=== PATIENT | male | born 1970 | race Caucasian/White ===

== ENCOUNTER 2018-06-25 10:56 | Emergency (ER) | payer BC, SELFPAY ==
[2018-06-25] VITALS (20 sets, daily range): BP systolic 114–143; BP diastolic 79–88; PULSE 58–82; RESP 11–21; TEMP 36.9; O2SAT 94–100
--- NOTE | 2018-06-25 11:19 | W.ED.GENAD ---
Discharge Plan Disposition Patient Disposition: HOME Condition: Stable Discharge Details Chief Complaint: Chest Pain Clinical Impression: Chest pain Primary Care Provider: None,None ED Provider: Kiran Cain Discharge Instructions Instructions: Chest Pain (ED) Additional Instructions: 1. Drink plenty of fluids. 2. Continue all medications as prescribed. 3. Acetaminophen 1000mg every 4 hours (up to 5 time a day) and/or ibuprofen 600mg every 6 hours as needed for fever or pain. Return to the Emergency Department (ED) if your condition worsens, does not improve as expected, or for ANY other concerns. Specifically, return if you have new or uncontrolled pain, worsening fever, difficulty breathing, vomiting, or are unable to drink fluids. Referrals: Jan Ya [Emergency Nurse] - Discharge Data Discharge Date/Time-TO BE ENTERED AT DEPARTURE: 06/25/18 12:55 Medical Decision Making 48-year-old presents with atypical chest pain which woke him from sleep. Chest pain has remained localized to his left parasternal anterior chest wall and is worsened by inspiration. Of note, during his ED evaluation, he noted change in pain with rolling towards his left side for a bedside ultrasound. EKG nondiagnostic. Troponin negative. Bedside echo negative for pericardial effusion, evidence of LV dysfunction, or RV strain. Aortic root visualized and appears normal in size. Discussed unclear etiology of chest pain with low likelihood of ACS/dissection/PE. Discharged home the plan for regular analgesia. He will follow-up as an outpatient with his PCP or return here for worsening or persistent symptoms. Given usual and customary return instructions at discharge. Differential Diagnosis Diagnoses considered unlikely includes ACS, aortic dissection, PE Medical Records Medical records reviewed: Yes I reviewed the patient's medical records. Imaging Data Radiologic Study: Attestation: I personally reviewed and interpreted this imaging study as follows: My impression: Limited cardiac bedside Ultrasound. Findings include no pericardial effusion, decreased LVEF, or RV strain. Images obtained, reviewed, and interpreted independently by myself. Images saved on ultrasound system for review. ECG Data Attestation: I personally reviewed and interpreted this ECG (s) as follows: Prior ECG tracings: not available for review Interpretation: Normal sinus rhythm 70bpm. Incomplete RBBB. No acute ST changes. Interpreted independently and contemporaneously by myself. HPI General Mode of arrival: ambulatory. Date/Time Provider Initiated Documentation: 06/25/18 11:19. Limitations to Documentation: no limitations. Information obtained by: patient. HPI Narrative: 48-year-old gentleman with an unremarkable past medical history. He has no known history of ACS or VT E. Presents with persistent atypical chest pain localized to his left parasternal anterior chest. He recounts being in his usual state of health until early this morning when he was awakened by atypical left-sided chest pain rated at a 6/10. He assumed this was reflux.. He continued his normal daily activities including having breakfast and noted no significant change in the symptoms with food ingestion. Later, he was evaluated by home energy auditor and had a nondiagnostic EKG. However, he later noted worsening pain when walking around the local grocery store prompting him to present here for further evaluation. On arrival, he rates his pain as 3/10 and localizes his symptoms to his left anterior parasternal chest at approximately the 6/7. His pain is worse with deep inspiration. He denies association with positional change or direct palpation. He denies significant dyspnea, palpitations, diaphoresis, presyncope, abdominal pain, or any lower extremity pain or General Stated Complaint: Chest Pain SUZE: 2 Review of Systems Review of Systems All systems reviewed & are unremarkable except as noted in HPI and below Constitutional Denies chills, Denies fatigue, Denies fever(s) and Denies weakness ENT Denies throat swelling Cardiovascular Reports chest pain, Denies diaphoresis, Denies rapid heart rate, Denies pedal edema, Denies irregular heart rhythm and Denies dyspnea Respiratory Denies chest congestion and Denies dyspnea Gastrointestinal Denies abdominal pain, Denies melena and Denies bloating Musculoskeletal Denies back pain and Denies muscle weakness Neurologic Denies behavioral changes, Denies confusion and Denies weakness Psychiatric Denies behavioral changes and Denies confusion Endocrine Denies fatigue, Denies flushing and Denies heat intolerance Hematologic/Lymphatic Denies as per HPI and Denies easy bleeding Allergic/Immunologic Denies urticaria and Denies throat swelling [facility] Social History Smoking/Tobacco Use Status: Never Exam Narrative Exam Narrative: Nursing note and vital signs have been reviewed and noted. GENERAL: alert, active, no acute distress, well -hydrated, well-nourished HEENT: atraumatic/normocephalic, PERRLA, EOMI, conjunctiva clear, external ears/canals normal, nasal mucosa normal NECK: supple, full range of motion, no mass, normal lymphadenopathy, no thyromegaly CARDIOVASCULAR: RRR, no murmurs, nl pulses, no edema PULMONARY: nl effort, no audible wheezing or stridor, nl breath sounds with no focal deficit. no chest wall tenderness ABDOMEN: soft, non-tender, non-distended, no mass, no organomegaly EXTREMITY: normal muscle tone, all joints with FROM, no deformity or tenderness NUERO: gross motor exam normal, normal stance and gait, PSYCH: alert and oriented, Course Vital Signs Temperature 98.4 F 06/25/18 11:01 Pulse 70 06/25/18 11:01 Respiratory Rate 12 06/25/18 11:01 Blood Pressure 143/83 H 06/25/18 11:01 Pulse Oximetry 99 06/25/18 11:01 Temperature 98.4 F 06/25/18 11:01 Temperature Source Skin 06/25/18 11:01 Pulse 82 06/25/18 11:13 Respiratory Rate 16 06/25/18 11:13 Respiratory Effort 06/25/18 11:13 Respiratory Depth Normal 06/25/18 11:13 Respiratory Pattern Normal 06/25/18 11:13 Blood Pressure 143/83 H 06/25/18 11:13 Blood Pressure Position Supine 06/25/18 11:01 Pulse Oximetry 98 06/25/18 11:13 Oxygen Delivery Method Room Air 06/25/18 11:13 Oxygen Flow Rate 0 06/25/18 11:13 Pain Level 3 06/25/18 11:13
--- NOTE | 2018-06-25 11:22 | ED.GENADUL_ITS ---
Discharge Plan Disposition Patient Disposition: HOME Condition: Stable Discharge Details Chief Complaint: Chest Pain Clinical Impression: Chest pain Primary Care Provider: None,None ED Provider: Kiran Cain Discharge Instructions Instructions: Chest Pain (ED) Additional Instructions: 1. Drink plenty of fluids. 2. Continue all medications as prescribed. 3. Acetaminophen 1000mg every 4 hours (up to 5 time a day) and/or ibuprofen 600mg every 6 hours as needed for fever or pain. Return to the Emergency Department (ED) if your condition worsens, does not improve as expected, or for ANY other concerns. Specifically, return if you have new or uncontrolled pain, worsening fever, difficulty breathing, vomiting, or are unable to drink fluids. Referrals: Jan Ya [Emergency Nurse] - Discharge Data Discharge Date/Time-TO BE ENTERED AT DEPARTURE: 06/25/18 12:55 Medical Decision Making 48-year-old presents with atypical chest pain which woke him from sleep. Chest pain has remained localized to his left parasternal anterior chest wall and is worsened by inspiration. Of note, during his ED evaluation, he noted change in pain with rolling towards his left side for a bedside ultrasound. EKG nondiagnostic. Troponin negative. Bedside echo negative for pericardial effusion, evidence of LV dysfunction, or RV strain. Aortic root visualized and appears normal in size. Discussed unclear etiology of chest pain with low likelihood of ACS/dissection/PE. Discharged home the plan for regular analgesia. He will follow-up as an outpatient with his PCP or return here for worsening or persistent symptoms. Given usual and customary return instructions at discharge. Differential Diagnosis Diagnoses considered unlikely includes ACS, aortic dissection, PE Medical Records Medical records reviewed: Yes I reviewed the patient's medical records. Imaging Data Radiologic Study: Attestation: I personally reviewed and interpreted this imaging study as follows: My impression: Limited cardiac bedside Ultrasound. Findings include no pericardial effusion, decreased LVEF, or RV strain. Images obtained, reviewed, and interpreted independently by myself. Images saved on ultrasound system for review. ECG Data Attestation: I personally reviewed and interpreted this ECG (s) as follows: Prior ECG tracings: not available for review Interpretation: Normal sinus rhythm 70bpm. Incomplete RBBB. No acute ST change s. Interpreted independently and contemporaneously by myself. HPI General Mode of arrival: ambulatory . Date/Time Provider Initiated Documentation: 02/03/19 11:19 . Limitations to Documentation: no limitations . Information obtained by: patient . HPI Narrative: 48-year-old gentleman with an unremarkable past medical history. He has no known history of ACS or VT E. Presents with persistent atypical chest pain localized to his left parasternal anterior chest. He recounts being in his usual state of health until early this morning when he was awakened by atypical left-sided chest pain rated at a 6/10. He assumed this was reflux.. He continued his normal daily activities including having breakfast and noted no significant change in the symptoms with food ingestion. Later, he was evaluated by chemical laboratory tester and had a nondiagnostic EKG. However, he later noted worsening pain when walking around the local grocery store prompting him to present here for further evaluation. On arrival, he rates his pain as 3/10 and localizes his symptoms to his left anterior parasternal chest at approximately the 6/7. His pain is worse with deep inspiration. He denies association with positional change or direct palpation. He denies significant dyspnea, palpitations, diaphoresis, presyncope, abdominal pain, or any lower extremity pain or General Stated Complaint: Chest Pain SUZE: 2 Review of Systems Review of Systems All systems reviewed & are unremarkable except as noted in HPI and below Constitutional Denies chills, Denies fatigue, Denies fever(s) and Denies weakness ENT Denies throat swelling Cardiovascular Reports chest pain, Denies diaphoresis, Denies rapid heart rate, Denies pedal edema, Denies irregular heart rhythm and Denies dyspnea Respiratory Denies chest congestion and Denies dyspnea Gastrointestinal Denies abdominal pain, Denies melena and Denies bloating Musculoskeletal Denies back pain and Denies muscle weakness Neurologic Denies behavioral changes, Denies confusion and Denies weakness Psychiatric Denies behavioral changes and Denies confusion Endocrine Denies fatigue, Denies flushing and Denies heat intolerance Hematologic/Lymphatic Denies as per HPI and Denies easy bleeding Allergic/Immunologic Denies urticaria and Denies throat swelling [facility] Social History Smoking/Tobacco Use Status: Never Exam Narrative Exam Narrative: Nursing note and vital signs have been reviewed and noted. GENERAL: alert, active, no acute distress, well -hydrated, well-nourished HEENT: atraumatic/normocephalic, PERRLA, EOMI, conjunctiva clear, external ears/canals normal, nasal mucosa normal NECK: supple, full range of motion, no mass, normal lymphadenopathy, no thyromegaly CARDIOVASCULAR: RRR, no murmurs, nl pulses, no edema PULMONARY: nl effort, no audible wheezing or stridor, nl breath sounds with no focal deficit. no chest wall tenderness ABDOMEN: soft, non-tender, non-distended, no mass, no organomegaly EXTREMITY: normal muscle tone, all joints with FROM, no deformity or tenderness NUERO: gross motor exam normal, normal stance and gait, PSYCH: alert and oriented, Course Vital Signs Temperature 98.4 F 06/25/18 11:01 Pulse 70 06/25/18 11:01 Respiratory Rate 12 06/25/18 11:01 Blood Pressure 143/83 H 06/25/18 11:01 Pulse Oximetry 99 06/25/18 11:01 Temperature 98.4 F 06/25/18 11:01 Temperature Source Skin 06/25/18 11:01 Pulse 82 06/25/18 11:13 Respiratory Rate 16 06/25/18 11:13 Respiratory Effort 06/25/18 11:13 Respiratory Depth Normal 06/25/18 11:13 Respiratory Pattern Normal 06/25/18 11:13 Blood Pressure 143/83 H 06/25/18 11:13 Blood Pressure Position Supine 06/25/18 11:01 Pulse Oximetry 98 06/25/18 11:13 Oxygen Delivery Method Room Air 06/25/18 11:13 Oxygen Flow Rate 0 06/25/18 11:13 Pain Level 3 06/25/18 11:13
[2018-06-25 11:31] LABS: Abs Immature Grans 0.01 k/cumm (0.0-0.09); Absolute Basophil Count 0.02 k/cumm (0.0-0.2); Absolute Eosinophil Count 0.32 k/cumm (0.0-0.7); Absolute Lymphocyte Count 1.58 k/cumm (1.2-3.4); Absolute Monocyte Count 0.88 k/cumm (0.11-0.7); Absolute Neutrophil Count 7.93 k/cumm (1.2-6.7); Basophils % 0.2; HCT 44.4 % (40.0-50.0); HGB 15.3 g/dL (13.5-17.5); Immature Grans % 0.1; Lymphocytes % 14.7; Mean Corp. HGB Concentration 34.5 g/dL (32.0-36.0); Mean Corpuscular Hemoglobin 29.8 pg (27.0-33.0); Mean Corpuscular Volume 86.4 fL (80-95); Mean Platelet Volume 9.3 fL (8.0-11.0); Monocytes % 8.2; Neutrophils % 73.8; Platelet Count 225 x1000/uL (130-400); RBC 5.14 m/cumm (4.50-6.00); RBC Distribution Width 11.9 % (11.8-14.1); White Blood Cell Count 10.74 k/cumm (4.4-10.8)
[2018-06-25 11:46] LABS: ALT 47 U/L (12-78); AST 25 U/L (15-37); Albumin 4.1 g/dL (3.4-5.0); Alkaline Phosphatase 46 U/L (46-116); Anion Gap 4.1 mmol/L (3-11); BUN 18 mg/dL (7-18); Bilirubin, Total 0.5 mg/dL (0.2-1.0); CO2 33.9 mmol/L (21.0-32.0); CREATININE 1.07 mg/dL (0.70-1.30); Calcium 9.4 mg/dL (8.5-10.1); Chloride 102 mmol/L (98-107); Glucose 96 mg/dL (70-100); Magnesium 1.9 mg/dL (1.8-2.4); Potassium 4.3 mmol/L (3.5-5.1); Sodium 140 mmol/L (136-145); Total Protein 7.7 g/dL (6.4-8.2)
[2018-06-25 11:51] LABS: Troponin I < 0.02 ng/mL (0.00-0.06)
[2018-06-25] MEDS: Ibuprofen 600 MG TAB PO (12:44)
== END 2018-06-25 12:55 | disposition home or self-care (01) ==
PROVIDERS: Emergency Provider Emergency Medicine
DX: R07.89 Other chest pain (principal)
CPT/HCPCS: 36415; 80053; 93005; 96360; 99285; 83735; 84484; 85025; 93010

== ENCOUNTER 2021-10-29 12:05 | Outpatient (REF) | payer BC, SELFPAY ==
[2021-10-29 20:25] LABS: HGB 13.8 g/dL (13.5-17.5); MCH 30.4 pg (27.0-33.0); MCHC 33.7 % (32.0-36.0); MCV 90 fL (80-95); MPV 9.2 fL (8.0-11.0); Platelet Count 247 10^3/uL (130-400); RBC 4.54 10^6/uL (4.36-5.78); RDW 11.6 % (11.8-14.1); RDW-SD 38.8 fL
[2021-10-29 20:34] LABS: Hemoglobin A1C 5.8 % (<5.7)
[2021-10-29 20:40] LABS: ALT 29 U/L (16-63); AST 15 U/L (15-37); Albumin 4.2 g/dL (3.4-5.0); Alkaline Phosphatase 47 U/L (46-116); Anion Gap 9.1 mmol/L (3-11); BUN 15 mg/dL (7-18); Bilirubin, Total 0.4 mg/dL (0.2-1.0); CO2 27.9 mmol/L (21.0-32.0); CREATININE 0.9 mg/dL (0.70-1.30); Calculated LDL 125 mg/dL (<100); Chloride 103 mmol/L (98-107); Cholesterol 225 mg/dL (<200); Glucose 98 mg/dL (74-106); HDL Cholesterol 94 mg/dL (40-60); Potassium 4.2 mmol/L (3.5-5.1); Sodium 140 mmol/L (136-145); Total Protein 6.9 g/dL (6.4-8.2); Triglyceride 30 mg/dL (<150)
[2021-11-02 11:13] LABS: Hepatitis C Ab w Rflx HCV PCR Negative (Negative)
[2021-11-02 11:29] LABS: HIV-1/2 Ag & Ab Screen Negative (Negative)
== END 2021-10-29 12:06 | disposition home or self-care (01) ==
LOC: NCHCN 12:05
PROVIDERS: Visit Provider Nurse Practitioner Family
DX: Z00.00 Encounter for general adult medical examination without abnormal findings (principal); Z13.220 Encounter for screening for lipoid disorders; Z13.1 Encounter for screening for diabetes mellitus; Z11.4 Encounter for screening for human immunodeficiency virus [HIV]; Z11.59 Encounter for screening for other viral diseases
CPT/HCPCS: 80053; 80061; 85027; 86803; 87389; 83036

== ENCOUNTER 2023-10-11 14:34 | Outpatient (REF) | payer BC, SELFPAY ==
[2023-10-11 16:24] LABS: Anion Gap 4.6 mmol/L (3-11); BUN 14 mg/dL (7-18); CO2 30.4 mmol/L (21.0-32.0); Calcium 9.2 mg/dL (8.5-10.1); Calculated LDL 96 mg/dL (<100); Chloride 105 mmol/L (98-107); Cholesterol 193 mg/dL (<200); Estimated GFR 90.56 (mL/min/1.73m2); Glucose 92 mg/dL (74-106); HDL Cholesterol 88 mg/dL (40-60); Potassium 4.6 mmol/L (3.5-5.1); Sodium 140 mmol/L (136-145); Triglyceride 46 mg/dL (<150)
[2023-10-12 18:51] LABS: PSA, Screening 0.7 ng/mL (<=3.5)
== END 2023-10-11 14:35 | disposition home or self-care (01) ==
LOC: NCHCN 14:34
PROVIDERS: Visit Provider Nurse Practitioner Family
DX: Z13.220 Encounter for screening for lipoid disorders (principal); Z00.00 Encounter for general adult medical examination without abnormal findings; Z12.5 Encounter for screening for malignant neoplasm of prostate
CPT/HCPCS: 80048; 80061; 84153

== ENCOUNTER 2024-02-29 20:43 | Observation (INO) | payer BC, SELFPAY ==
[2024-02-29] VITALS (65 sets, daily range): BP systolic 115–159; BP diastolic 65–130; PULSE 55–65; RESP 8–24; TEMP 36.4; O2SAT 95–100
--- NOTE | 2024-02-29 20:45 | RT.EKG_ITS ---
APPROVED REPORT Exam: Resting ECG Reason for Exam: [facility] Patient Location: E HR:56 bpm ECG Measurements Heart Rate 56 AXIS NH 191 P 71 QRSd 112 QRS -17 QT 421 T 14 QTc 408 Conclusion Sinus bradycardia...rate< 60
--- NOTE | 2024-02-29 20:52 | DI.CT_ITS ---
Exam(s) CT BRAIN NECK CTA EXAM: CT BRAIN NECK CTA CLINICAL HISTORY: tia. TECHNIQUE: Imaging Protocol: Axial CT angiography was performed with multi-slice acquisition and mu lti-planar and/or 3D reconstructions. CONTRAST MATERIAL: Intravenous: Omnipaque 350 Contrast volume:70 mL COMPARISON: No exams were available for comparison FINDINGS: CTA Neck W: Aortic arch anatomy: No significant stenosis at the origin the great vessels off the aortic arch. No intimal flap evident in the arch. Anterior circulation: Both common carotid arteries ascend with normal luminal diameters. At the level the carotid bulbs and proximal internal carotid arteries there is minimal plaque without hemodynamically significant stenosis evident. Posterior circulation: Both vertebral arteries originate in conventional fashion off of the subclavian arteries and there is no obvious stenosis at the origin of the vertebral arteries. Both vertebral arteries exhibit normal luminal diameters within the foramen transversarium. Both vertebral arteries contribute to the formation of the basilar artery at the skull base. CTA Brain W: Anterior circulation: Both internal carotid arteries are patent in the skull base-carotid canals as well as within the cave rnous sinuses. The supraclinoid aspects of the ICAs are patent. Both A1 segments are patent as are the anterior cer ebral arteries and there is no evidence of aneurysm at the level of the anterior communicating artery . Both middle cerebral arteries are patent with no evidence of significant stenosis nor intraluminal th rombus. There also no aneurysms of these vessels. Posterior circulation: The basilar artery ascends in the midline. Distally it gives off patent bilateral superior cerebella r arteries. Above this level the basilar artery terminates as patent bilateral posterior cerebral arteries. There is no evidence of aneurysm at the tip of the basilar artery nor elsewhere in the [id number] is. CT BRAIN: No skull fractures. However, there is mucosal disease in the maxillary and sphenoid sinuses. No flu id levels. There is no evidence of intracranial hemorrhage, mass effect, or shift of midline structures. There are no extra-axial fluid collections. Ventricles are not enlarged or shifted. There are no ring enh ancing lesions in the brain and no abnormal meningeal enhancement. IMPRESSION: 1. Patent carotid arteries in the neck. No hemodynamically significant stenosis. 2. Patent vertebral arteries. 3. Patent intracranial arteries. 4. No acute intracranial findings. No ring enhancing lesions in the brain. No abnormal meningeal en hancement. RADIATION DOSE DELIVERED: 2,160.16mGy.cm Total DLP DATA REPOSITORY: All CT scans at this facility are submitted to the National Radiology Data Registry (NRDR) Dose Index Registry (DIR) with the [employer] (ACR). RADIATION OPTIMIZATION: All CT scans at this facility use at least one of these dose optimization te chniques: automated exposure control; mA and/or kV adjustment per patient size (includes targeted exa ms where dose is matched to clinical indication); or iterative reconstruction.
[2024-02-29 20:58] LABS: Abs Immature Grans 0.01 10^3/uL (0.0-0.06); Absolute Basophil Count 0.05 10^3/uL (0.0-0.2); Absolute Eosinophil Count 0.34 10^3/uL (0.0-0.7); Absolute Monocyte Count 0.58 10^3/uL (0.1-0.8); Absolute Neutrophil Count 3.12 10^3/uL (1.2-6.7); Basophils % 0.8 %; Eosinophils % 5.2 %; HCT 40.4 % (40.0-50.0); HGB 13.5 g/dL (13.5-17.5); Immature Grans % 0.2 %; Lymphocytes % 37.9 %; MCH 29.9 pg (27.0-33.0); MCHC 33.4 % (32.0-36.0); MCV 90 fL (80-95); Monocytes % 8.8 %; Neutrophils % 47.1 %; Platelet Count 237 10^3/uL (130-400); RBC 4.51 10^6/uL (4.36-5.78); RDW 11.3 % (11.8-14.1); RDW-SD 37.2 fL
--- NOTE | 2024-02-29 21:01 | ED.GENADUL_ITS ---
Discharge Plan Disposition Patient Disposition: Admit to [facility] Condition: Stable Discharge Details Chief Complaint: CVA/TIA Clinical Impression: Disturbance in speech, Brain TIA ED Provider: Kole Humphrey Home Meds and New Rx's Prescriptions: No Action No Known Home Meds HPI General Mode of arrival: EMS . Date/Time Provider Initiated Documentation: 02/29/24 20:51 . Limitations to Documentation: no limitations . Information obtained by: patient . History of Present Illness 54 year old M presents to the emergency department with the chief complaint of speech abnormalities, described as moderate, Patient started experiencing this minute(s) (30) and it has been now resolved. No relieving factors improve symptom(s), No exacerbating factors reported . Patient notes denies chest pain and shortness of breath. Patient did receive the following treatments prior to arrival, none Related Data Home Medications ?Medication ?Instructions ?Recorded ?Confirmed Unknown [No Known Home Meds] 01/25/23 02/29/24 Allergies Allergy/AdvReac Type Severity Reaction Status Date / Time kiwi Allergy Unknown Swelling/Ed Verified 02/29/24 20:52 cabrera General Stated Complaint: CVA/TIA SUZE: 3 Review of Systems All systems reviewed & are unremarkable except as noted in HPI and below Constitutional Constitutional: Denies chills, Denies fever(s) and Denies weakness Eyes Eyes: Denies loss of vision Cardiovascular Cardiovascular: Denies chest pain and Denies dyspnea Respiratory Respiratory: Denies cough and Denies dyspnea Gastrointestinal Gastrointestinal: Denies abdominal pain, Denies nausea and Denies vomiting Musculoskeletal Musculoskeletal: Denies joint swelling Neurologic Neurologic: Reports abnormal speech, Denies loss of vision and Denies weakness Exam Const General: no acute distress Orientation: alert [facility] Head: normal to inspection Ears: external ears normal General nose exam: external nose normal Mouth: moist mucous membranes Eyes General: appearance normal, both eyes and all related structures Neck Neck: normal visual inspection Resp Effort & Inspection: normal respiratory effort and able to speak in complete sentences Auscultation: clear to auscultation bilaterally Cardio Rate: regular rate Heart Sounds: no murmurs Skin General skin exam: no rashes or lesions noted Neuro General: patient alert and patient oriented x3 Extrem General: normal to inspection Psych Mental Status: mental status grossly normal Course Vital Signs Vital signs: Vital Signs Temperature 36.4 C 02/29/24 20:44 Pulse 65 02/29/24 20:44 Respiratory Rate 18 02/29/24 20:44 Blood Pressure 159/127 H 02/29/24 20:44 Pulse Oximetry 97 02/29/24 20:44 Temperature 36.4 C 02/29/24 20:44 Temperature Source Skin 02/29/24 20:44 Pulse 65 02/29/24 20:44 Respiratory Rate 18 02/29/24 20:49 Respiratory Effort Normal 02/29/24 20:49 Respiratory Depth Normal 02/29/24 20:49 Respiratory Pattern Normal 02/29/24 20:49 Blood Pressure 159/127 H 02/29/24 20:44 Blood Pressure Position Sitting 02/29/24 20:44 Pulse Oximetry 97 02/29/24 20:44 Oxygen Delivery Method Room Air 02/29/24 20:44 Oxygen Flow Rate 0 02/29/24 20:44 Pain Level 0 02/29/24 20:44 Lab/Test Results Lab/Test Results: Laboratory Tests Range/Units 02/29/24 20:51 WBC (4.4-10.8) 10^3/uL 6.60 RBC (4.36-5.78) 10^6/uL 4.51 Hgb (13.5-17.5) g/dL 13.5 Hct (40.0-50.0) % 40.4 MCV (80-95) fL 90 MCH (27.0-33.0) pg 29.9 MCHC (32.0-36.0) % 33.4 RDW (11.8-14.1) % 11.3 L Plt Count (130-400) 10^3/uL 237 MPV (8.0-11.0) fL 9.0 Immature Gran % % 0.2 Neutrophils % % 47.1 Lymphocytes % % 37.9 Monocytes % % 8.8 Eosinophils % % 5.2 Basophils % % 0.8 Nucleated RBC % (0.0-0.3) % 0.0 Absolute Neutrophils (1.2-6.7) 10^3/uL 3.12 Absolute Lymphocytes (1.2-3.4) 10^3/uL 2.50 Absolute Monocytes (0.1-0.8) 10^3/uL 0.58 Absolute Eosinophils (0.0-0.7) 10^3/uL 0.34 Absolute Basophils (0.0-0.2) 10^3/uL 0.05 Medical Decision Making 54-year-old male who denies any significant past medical history comes in with an episode of feeling like he was in a pass out and had changes in speech. He says there was around 830 doing a crossword puzzle when he was unable to say the words on the page and noted he had garbled speech. He did not have loss consciousness denies any chest pain or difficulty breathing. By the time EMS got there he had return to baseline. He denies any fevers or chills recently, no abdominal pain. He is alert and oriented x 4 on arrival speaking clearly. He has no focal neurological deficits, cranial nerves II through XII are intact, NIH on my exam is 0. His symptoms are concerning for TIA, will proceed with EKG and troponins, CBC, CMP, CTA of the neck and brain and teleneurology consult. CTA negative, labs thus far unremarkable, patient remained stable, pending t eleneurology consult. Patient stable, evaluated by teleneurology who is not sure if this is a TIA versus seizure versus arrhythmia, did recommend treating it as a TIA and recommend also adding Plavix. They recommend admission for telemetry monitoring and MRI and echo. They did also recommend having EEG done but this can be done as an outpatient. Will discuss with hospitalist about admission Differential Diagnosis Differential Diagnosis: TIA, electrolyte abnormality, intracranial hemorrhage Lab Data Lab results reviewed: Yes I reviewed the patient's lab results. ECG Data Attestation: I personally reviewed and interpreted this ECG (s) as follows: Prior ECG tracings: not available for review Interpretation: sinus brtadycardia rate of 56 pr 191 no stemi Quality:SDOH Health Related Social Needs: No Data to Display PFSH All Active Problems (Updated 02/29/24 @ 22:31 by Kole Humphrey MD) Brain TIA (Acute) Disturbance in speech (Acute) Social History Smoking/Tobacco Use Status: Never Smoking risk assessment performed?: Yes Alcohol Intake: current Alcohol Intake frequency: a few times a week Drug use: Never Substance use type: marijuana Do you feel safe in your relationship?: Yes
[2024-02-29] MEDS: Normal Saline - Diluent 50 ML VIAL IJ (21:08)
[2024-02-29] MEDS: Omnipaque 350 MG/ML 100 ML BTL IJ (21:09)
[2024-02-29 21:12] LABS: INR 1.1 (0.9-1.1); PTT Activated 24.6 sec (23.6-32.8)
[2024-02-29 21:14] LABS: ALT 27 U/L (16-63); AST 24 U/L (15-37); Albumin 3.8 g/dL (3.4-5.0); Alkaline Phosphatase 49 U/L (46-116); Anion Gap 8.2 mmol/L (3-11); BUN 22 mg/dL (7-18); Bilirubin, Total 0.28 mg/dL (0.2-1.0); CO2 30.8 mmol/L (21.0-32.0); CREATININE 1.4 mg/dL (0.70-1.30); Chloride 105 mmol/L (98-107); ETHANOL BLOOD 3.3 mg/dL (<10); Glucose 103 mg/dL (74-106); Potassium 3.8 mmol/L (3.5-5.1); Sodium 144 mmol/L (136-145); Total Protein 6.9 g/dL (6.4-8.2)
--- NOTE | 2024-02-29 21:38 | DI.VRAD_ITS ---
PROCEDURE INFORMATION: Exam: CTA Head Without And With Contrast, Arteriography Exam date and time: 02/29/2024 9:10 PM Age: 54 years old Clinical indication: Stroke-like symptoms; Speech disturbance; Additional info: TIA TECHNIQUE: Imaging protocol: Computed tomographic angiography of the head without and with contrast. Exam focused on the arteries. 3D rendering (Not supervised by radiologist): MIP and/or 3D reconstructed images were created by the technologist. Contrast material: OMNI 350; Contrast volume: 70 ml; Contrast route: INTRAVENOUS (IV); Other technique: STROKE PROTOCOL was implemented. COMPARISON: No relevant prior studies available. FINDINGS: ANTERIOR CIRCULATION: Right internal carotid artery: Intracranial segment is patent with no significant stenosis or occlusion. No aneurysm. Right middle cerebral artery: No occlusion or significant stenosis. No aneurysm. Right anterior cerebral artery: No occlusion or significant stenosis. No aneurysm. Left internal carotid artery: Intracranial segment is patent with no significant stenosis. No aneurysm. Left middle cerebral artery: No occlusion or significant stenosis. No aneurysm. Left anterior cerebral artery: No occlusion or significant stenosis. No aneurysm. POSTERIOR CIRCULATION: Right vertebral artery: No occlusion or significant stenosis. No aneurysm. Left vertebral artery: No occlusion or significant stenosis. No aneurysm. Basilar artery: No occlusion or significant stenosis. No aneurysm. Right posterior cerebral artery: No occlusion or significant stenosis. No aneurysm. Left posterior cerebral artery: No occlusion or significant stenosis. No aneurysm. HEAD: Brain: No intracranial hemorrhage or extra-axial fluid collection. No evidence of mass effect or midline shift. Doyle-white matter differentiation is intact. Cerebral ventricles: No ventriculomegaly. Bones: Unremarkable. No acute fracture. Paranasal sinuses: Visualized sinuses are normal. No fluid levels. Mastoid air cells: Visualized mastoids are normal. No mastoid effusion. Soft tissues: Unremarkable. IMPRESSION: 1. No intracranial arterial occlusion or significant stenosis. 2. No acute findings on non-contrast Head CT images. ASPECTS score 10. PROCEDURE INFORMATION: Exam: CTA Neck With Contrast Exam date and time: 02/29/2024 9:10 PM Age: 54 years old Clinical indication: Stroke-like symptoms; Speech disturbance; Additional info: TIA TECHNIQUE: Imaging protocol: Computed tomographic angiography of the neck with contrast. Exam focused on the cervical segments of the vasculature. 3D rendering (Not supervised by radiologist): MIP and/or 3D reconstructed images were created by the technologist. Contrast material: OMNI 350; Contrast volume: 70 ml; Contrast route: INTRAVENOUS (IV); COMPARISON: No relevant prior studies available. FINDINGS: Right common carotid artery: No significant stenosis. No dissection or occlusion. Right internal carotid artery: Extracranial segment is patent with no significant stenosis (0% stenosis by NASCET criteria). No dissection or occlusion. Right external carotid artery: No occlusion or significant stenosis. Left common carotid artery: No significant stenosis. No dissection or occlusion. Left internal carotid artery: Extracranial segment is patent with no significant stenosis (0% stenosis by NASCET criteria). No dissection or occlusion. Left external carotid artery: No occlusion or significant stenosis. Right vertebral artery: No significant stenosis. No dissection or occlusion. Left vertebral artery: No significant stenosis. No dissection or occlusion. Soft tissues: Unremarkable. Bones/joints: No acute fracture. IMPRESSION: No occlusion or significant stenosis in the arteries of the neck. REFERENCES: NASCET CRITERIA. The degree of stenosis in the cervical segment of the internal carotid artery is based on NASCET criteria. Normal is no stenosis. Mild is less than 50% stenosis. Moderate is 50-69% stenosis. Severe is 70% to 99% stenosis. Total occlusion is no detectable patent lumen. Dictated and Authenticated by: Gerardo London MD. Ordering:MARTÍN Sharif MD
[2024-02-29 21:46] LABS: Troponin I 10 ng/L (<or=76)
[2024-02-29] MEDS: Aspirin 325 MG TAB PO (21:48)
[2024-02-29 22:30] LABS: Troponin I 11 ng/L (<or=76)
[2024-02-29] MEDS: Clopidogrel 300 MG TAB PO (22:36)
--- OUTSIDE RECORDS SUMMARY | 2024-02-29 22:42 | XMS_ITS | Encounter Summary ---
Author Organization [facility] Address [address] [place] [address] Care Team Providers Care Rail Signal Worker Name Role Phone Yazmin Mendez [facility] Primary Care Provider [phone] Encounter Details Date Type Department Care Team (Late st Contact Info) Description 10/12/2023 Lab Requisition [facility] Pathology & Laboratory Medicine - [address] [address] Outr Resulting Lab, Provider Social History Tobacco Use Types Packs/Day Years Used Date Smoking Tobacco: Never Assessed Sex and Gender Information Value Date Recorded Sex Assigned at Not on file Gender Identity Male 12/27/2023 14:44 EDT Sexual Orientation Not on file documented as of this encounter Plan of Treatment Not on file documented as of this encounter Procedures Procedure Name Priority Date/Time Associated Diagnosis Comments PSA TOTAL, DIAGNOSTIC Routine 10/11/2023 11:15 EDT documented in this encounter Results * PSA TOTAL, DIAGNOSTIC (10/11/2023 11:15 EDT) PSA 0.7 <=3.5 ng/mL 10/12/2023 18:47 EDT [facility] Blood VENOUS BLOOD / Unknown 10/11/2023 11:15 EDT 10/12/2023 17:32 EDT Narrative [facility] - 10/12/2023 18:47 EDT NOTE: Serum PSA concentration should not be interpreted as absolute evidence for the presence or absence of malignant disease. Assayed on Siemens ADVIA Centaur XPT using chemiluminescent technology.??Values obtained by using different assay methods cannot be used interchangeably. Provider Outr Resulting Lab CHEMISTRY & BLOOD GAS ORDERABLES [facility] [address] [place] [address] documented in this encounter Visit Diagnoses Not on filedocumented in this encounter Care Teams Rail Signal Worker Relationship Specialty Start Date End Date Yazmin Mendez FNP [address] [place] [address] PCP - General Family Medicine - Primary Care 12/27/23 documented as of this encounter
--- OUTSIDE RECORDS SUMMARY | 2024-02-29 22:42 | XMS_ITS | Encounter Summary ---
Author Organization [facility] Address [address] [place] [address] Care Team Providers Care Transition Specialist Name Role Phone Yazmin Mendez PULLMAN CONDUCTOR Primary Care Provider Encounter Details Date Type Department Care Team ([facility] st Contact Info) Description 12/27/2023 14:45 EDT Phlebotomy Only [facility] - Outpatient Phlebotomy Drawing [address] [place] [address] Lab, [facility] Op Phlebotomy Immunity status testing; Screening-pulmonary TB Social History Tobacco Use Types Packs/Day Years Used Date Smoking Tobacco: Never Assessed Sex and Gender Information Value Date Recorded Sex Assigned at Not on file Gender Identity Male 12/27/2023 14:44 EDT Sexual Orientation Not on file documented as of this encounter Plan of Treatment Not on file documented as of this encounter Procedures Procedure Name Priority Date/Time Associated Diagnosis Comments QUANTIFERON MITOGEN (PERFORMABLE) Routine 12/27/2023 14:57 EDT Screening-pulmonar y TB QUANTIFERON TB2 (PERFORMABLE) Routine 12/27/2023 14:57 EDT Screening-pulmonar y TB QUANTIFERON TB1 (PERFORMABLE) Routine 12/27/2023 14:57 EDT Screening-pulmonar y TB QUANTIFERON NIL (PERFORMABLE) Routine 12/27/2023 14:57 EDT Screening-pulmonar y TB QUANTIFERON INTERPRETATION (PERFORMABLE) Today 12/27/2023 14:57 EDT Screening-pulmonar y TB QUANTIFERON TB GOLD PLUS Routine 12/27/2023 14:57 EDT Screening-pulmonar y TB MEASLES IGG AB Routine 12/27/2023 14:57 EDT Immunity status testing RUBELLA IGG ANTIBODY Routine 12/27/2023 14:57 EDT Immunity status testing HEPATITIS B SURFACE ANTIBODY Routine 12/27/2023 14:57 EDT Immunity status testing VARICELLA IGG ANTIBODY Routine 14:57 EDT Immunity status testing MUMPS ANTIBODY IGG Routine 12/27/2023 14 :57 EDT Immunity status testing documented in this encounter Results * QUANTIFERON INTERPRETATION (PERFORMABLE) (12/27/2023 14:57 EDT) Quantiferon Interpretation Negative Negative 12/29/2023 12:22 EDT [facility] Comment:No interferon-gamma response to M. tuberculosis antigens was detected. ??Infection with M. tuberculosis is unlikely. A single negative result does not exclude infection with M. tuberculosis. ??In patients at high risk for M. tuberculosis infection, a second test should be considered. TB1 Ag minus Nil 0.04 IU/ml 12/29/19 24 12:22 EDT [facility] TB2 Ag minus Nil 0.03 IU/mL 12/29/19 12:22 EDT [facility] Blood VENOUS BLOOD / Unknown Venipuncture / Unknown 12/27/2023 14:57 EDT 12/29/2023 12:07 EDT Anna Jones MD IMMUNOLOGY AND SEROL JOSÉ ORDERABLES [facility] [address] [place] [address] * QUANTIFERON MITOGEN (PERFORMABLE) (12/27/2023 14:57 EDT) Blood VENOUS BLOOD / Unknown Venipuncture / Unknown 12/27/2023 14:57 EDT 12/27/2023 15:06 EDT Anna Jones MD IMMUNOLOGY AND SEROL OGY ORDERABLES Performing Organization Address City/[facility] Co de Phone Number [facility] [address] [place] [address] * QUANTIFERON TB2 (PERFORMABLE) (12/27/2023 14:57 EDT) Blood VENOUS BLOOD / Unknown Venipuncture / Unknown 12/27/2023 14:57 EDT 12/27/2023 15:06 EDT Anna Jones MD IMMUNOLOGY AND SEROL OGY ORDERABLES Performing Organization Address [facility] Co de Phone Number [facility] [address] [place] [phone] * QUANTIFERON TB1 (PERFORMABLE) (12/27/2023 14:57 EDT) Blood VENOUS BLOOD / Unknown Venipuncture / Unknown 12/27/2023 14:57 EDT 12/27/2023 15:06 EDT Anna Jones MD IMMUNOLOGY AND SEROL OGY ORDERABLES Performing Organization Address [facility] Co de Phone Number [facility] [address] [place] [phone] * QUANTIFERON NIL (PERFORMABLE) (12/27/2023 14:57 EDT) Blood VENOUS BLOOD / Unknown Venipuncture / Unknown 12/27/2023 14:57 EDT 12/27/2023 15:06 EDT Anna Jones MD IMMUNOLOGY AND SEROL OGY ORDERABLES Performing Organization Address [facility] Co de Phone Number [facility] [address] [place], [place] [phone] * HEPATITIS B SURFACE ANTIBODY (12/27/2023 14:57 EDT) Hep B Surface Ab, Quantitative 78.0 See Note mIU/mL 12/27/2023 17:08 EDT [facility] Comment: Clinical Interpretation of Immune Status: Anti-HBs detected at >10 mIU/mL. Patient is considered to be immune to infection with HBV. It has not been determined what the clinical significance is for values greater than or = 12 mIU/mL, other than the individual is considered to be immune to HBV infection. Reference Range for Hep B Surface Ab, Quant: Positive: ?>= 12.00 mIU/mL Negative: ?< 5.00 mIU/mL Indeterminate: ??>= 5.00 mIU/mL and < 12.00 mIU/mL Blood VENOUS BLOOD / Unknown Venipuncture / Unknown 12/27/2023 14:57 EDT 12/27/2023 15:37 EDT Anna Jones MD CHEMISTRY & BLOOD GA S ORDERABLES Performing Organization Address City/[facility]/ZIP Co de Phone Number [facility] [address] [place] [address] * VARICELLA IGG ANTIBODY (12/27/2023 14:57 EDT) Pathologist [facility] Varicella IgG Ab Positive See Note 12/27/2023 21:48 EDT [facility] Blood VENOUS BLOOD / Unknown Venipuncture / Unknown 12/27/2023 14:57 EDT 12/27/2023 15:37 EDT Anna Jones MD IMMUNOLOGY AND SEROL OGY ORDERABLES [facility] [address] [place] [address] * RUBELLA IGG ANTIBODY (12/27/2023 14:57 EDT) Rubella IgG Ab Positive See Note 12/27/2023 16:48 EDT [facility] Comment:The presence of Rube lla IgG suggests immunity against Rubella. Blood VENOUS BLOOD / Unknown Venipuncture / Unknown 12/27/2023 14:57 EDT 12/27/2023 15:37 EDT Anna Jones MD CHEMISTRY & BLOOD GA S ORDERABLES Performing Organization Address City/[facility]/ZIP Co de Phone Number [facility] [address] [place] [phone] * MUMPS ANTIBODY IGG (12/27/2023 14:57 EDT) Mumps Antibody IgG Positive See Note 12/27/2023 21:50 EDT [facility] Comment:Presence of detectab le mumps virus IgG antibodies. Blood VENOUS BLOOD / Unknown Venipuncture / Unknown 12/27/2023 14:57 EDT 12/27/2023 15:37 EDT Anna Jones MD IMMUNOLOGY AND SEROL OGY ORDERABLES Performing Organization Address City/[facility]/ZIP Co de Phone Number [facility] [address] [place] [phone] * MEASLES IGG AB (12/27/2023 14:57 EDT) Measles IgG Ab Positive See Note 12/27/2023 21:49 EDT [facility] Comment:Presence of detectab le measles virus IgG antibodies. Blood VENOUS BLOOD / Unknown Venipuncture / Unknown 12/27/2023 14:57 EDT 12/27/2023 15:37 EDT Anna Jones MD IMMUNOLOGY AND SEROL OGY ORDERABLES Performing Organization Address City/[facility]/ZIP Co de Phone Number [facility] [address] [place] [phone] documented in this encounter Visit Diagnoses Diagnosis Immunity status testing Antibody response examination Screening-pulmonary TB Screening examination for pulmonary tuberculosis documented in this encounter Care Teams Transition Specialist Relationship Specialty Start Date End Date Yazmin Mendez FNP [address] [place] [address] PCP - General Family Medicine - Primary Care 12/27/23 documented as of this encounter
--- OUTSIDE RECORDS SUMMARY | 2024-02-29 22:42 | XMS_ITS | Encounter Summary ---
Author Organization [facility] Address [address] [place] [address] Care Team Providers Care Director Of Strategic Sourcing Name Role Phone Yazmin Mendez CALCINER OPERATOR HELPER Primary Care Provider [phone] Encounter Details Date Type Department Care Team (Late st Contact Info) Description 12/27/[address] [facility] [address] [place], [place] [id number] Laura White RN Immunity status testing (Primary Dx); Screening-pulmonary TB Social History Tobacco Use Types Packs/Day Years Used Date Smoking Tobacco: Never Assessed Sex and Gender Information Value Date Recorded Sex Assigned at Not on file Gender Identity Male 12/27/2023 14:44 EDT Sexual Orientation Not on file documented as of this encounter Plan of Treatment Not on file documented as of this encounter Results * HEPATITIS B SURFACE ANTIBODY (12/27/2023 14:57 EDT) Hep B Surface Ab, Quantitative 78.0 See Note mIU/mL 12/27/2023 17:[address] [facility] Comment: Clinical Interpretation of Immune [...] BLOOD GA S ORDERABLES Performing Organization Address [facility] Co de Phone Number [facility] [address] [place] [address] * VARICELLA IGG ANTIBODY (12/27/2023 14:57 EDT) Varicella IgG Ab Positive See Note 12/27/2023 21:[address] [facility] Blood VENOUS BLOOD / Unknown Venipuncture / Unknown 12/27/2023 14:57 EDT 12/27/2023 15:37 EDT Anna Jones MD IMMUNOLOGY AND SEROL OGY ORDERABLES Performing Organization Address [facility] Co de Phone Number [facility] [address] [place], [place] [phone] * RUBELLA IGG ANTIBODY (12/27/2023 14:57 EDT) Rubella IgG Ab Positive See Note 12/27/2023 16:[address] [facility] Comment:The presence of Rube lla IgG suggests immunity against Rubella. Blood VENOUS BLOOD / Unknown Venipuncture / Unknown 12/27/2023 14:57 EDT 12/27/2023 15:37 EDT Anna Jones MD CHEMISTRY & BLOOD GA S ORDERABLES Performing Organization Address [facility] Co de Phone Number [facility] [address] [phone] * MUMPS ANTIBODY IGG (12/27/2023 14:57 EDT) Mumps Antibody IgG Positive See Note 12/27/2023 21:[address] [facility] Comment:Presence of detectab le mumps virus IgG antibodies. Blood VENOUS BLOOD / Unknown Venipuncture / Unknown 12/27/2023 14:57 EDT 12/27/2023 15:37 EDT Anna Jones MD IMMUNOLOGY AND SEROL OGY ORDERABLES [facility] [address] [place] [address] * MEASLES IGG AB (12/27/2023 14:57 EDT) Measles IgG Ab Positive See Note 12/27/2023 21:[address] [facility] Comment:Presence of detectab le measles virus IgG antibodies. Blood VENOUS BLOOD / Unknown Venipuncture / Unknown 12/27/2023 14:57 EDT 12/27/2023 15:37 EDT Anna Jones MD IMMUNOLOGY AND SEROL OGY ORDERABLES Performing Organization Address [facility] Co de Phone Number [facility] [address] [place] [phone] documented in this encounter Visit Diagnoses Diagnosis Immunity status testing- Primary Antibody response examination Screening-pulmonary TB Screening examination for pulmonary tuberculosis documented in this encounter Care Teams Director Of Strategic Sourcing Relationship Specialty Start Date End Date aYzmin Mendez FNP [address] [place] [phone] PCP - General Family Medicine - Primary Care 12/27/23 documented as of this encounter
--- OUTSIDE RECORDS SUMMARY | 2024-02-29 22:42 | XMS_ITS | Clinical Summary ---
Author Organization [facility] Address [address] [place] [address] Care Team Providers Care Automobile Parker Name Role Phone Yazmin Mendez SENIOR MEDICAL TECHNOLOGIST Primary Care Provider [phone] Encounters Date Type Department Care Team Description 12/27/2023 14:45 EDT Phlebotomy Only [facility] - Outpatient Phlebotomy Drawing [address] [place] [address] Lab, [facility] [place] [facility] Phlebotomy Immunity status testing; Screening-pulmonary TB 12/27/2023 Orders Only [facility] [address] [place] [address] Laura White RN Immunity status testing (Primary Dx); Screening-pulmonary TB from Last 3 Months Social History Tobacco Use Types Packs/Day Years Used Date Smoking Tobacco: Never Assessed Sex and Gender Information Value Date Recorded Sex Assigned at Not on file Gender Identity Male 12/27/2023 14:44 EDT Sexual Orientation Not on file Plan of Treatment Health Maintenance Due Date Last Done Comments Hepatitis B Vaccine (1 of 3 - 19+ 3-dose series) 01/28 COVID-19 Vaccine (2022-24 season) 2023 Hepatitis C Screen Completed 10/29/2021 Procedures Procedure Name Priority Date/Time Associated Diagnosis Comments QUANTIFERON INTERPRETATION (PERFORMABLE) Today 12/27/2023 14:57 EDT Screening-pulmonar y TB QUANTIFERON MITOGEN (PERFORMABLE) Routine 12/27/2023 14:57 EDT Screening-pulmonar y TB QUANTIFERON TB2 (PERFORMABLE) Routine 12/27/2023 14:57 EDT Screening-pulmonar y TB QUANTIFERON TB1 (PERFORMABLE) Routine 12/27/2023 14:57 EDT Screening-pulmonar y TB QUANTIFERON NIL (PERFORMABLE) Routine 12/27/2023 14:57 EDT Screening-pulmonar y TB HEPATITIS B SURFACE ANTIBODY Routine 12/27/2023 14:57 EDT Immunity status testing VARICELLA IGG ANTIBODY Routine 14:57 EDT Immunity status testing QUANTIFERON TB GOLD PLUS Routine 12/27/2023 14:57 EDT Screening-pulmonar y TB RUBELLA IGG ANTIBODY Routine 12/27/2023 14:57 EDT Immunity status testing MUMPS ANTIBODY IGG Routine 12/27/2023 14 :57 EDT Immunity status testing MEASLES IGG AB Routine 12/27/2023 14:57 EDT Immunity status testing HEPATITIS C AB W REFLEX TO HCV RNA BY PCR Routine 10/29/2021 11:50 EDT from Last 3 Months or Most Recently Relevant to Health Maintenance Results * QUANTIFERON MITOGEN (PERFORMABLE) (12/27/2023 14:57 EDT) Blood VENOUS BLOOD / Unknown Venipuncture / Unknown 12/27/2023 14:57 EDT 12/27/2023 15:06 EDT Anna Jones MD IMMUNOLOGY AND SEROL [employer] ORDERABLES [facility] [address] [place] [address] * QUANTIFERON TB2 (PERFORMABLE) (12/27/2023 14:57 EDT) Blood VENOUS BLOOD / Unknown Venipuncture / Unknown 12/27/2023 14:57 EDT 12/27/2023 15:06 EDT Anna Jones MD IMMUNOLOGY AND SEROL OGY ORDERABLES Performing Organization Address [facility] Co de Phone Number [facility] [address] [place] [address] * QUANTIFERON TB1 (PERFORMABLE) (12/27/2023 14:57 EDT) Blood VENOUS BLOOD / Unknown Venipuncture / Unknown 12/27/2023 14:57 EDT 12/27/2023 15:06 EDT Anna Jones MD IMMUNOLOGY AND SEROL OGY ORDERABLES Performing Organization Address [facility] Co de Phone Number [facility] [address] [place] [phone] * QUANTIFERON NIL (PERFORMABLE) (12/27/2023 14:57 EDT) Blood VENOUS BLOOD / Unknown Venipuncture / Unknown 12/27/2023 14:57 EDT 12/27/2023 15:06 EDT Anna Jones MD IMMUNOLOGY AND SEROL OGY ORDERABLES Performing Organization Address [facility] Co de Phone Number [facility] [address] [place] [phone] * QUANTIFERON INTERPRETATION (PERFORMABLE) (12/27/2023 14:57 EDT) [facility] Quantiferon Interpretation Negative Negative 12/29/2023 12:22 EDT [facility] Comment:No interferon-gamma response to M. tuberculosis antigens was detected. ??Infection with M. tuberculosis is unlikely. A single negative result does not exclude infection with M. tuberculosis. ??In patients at high risk for M. tuberculosis infection, a second test should be considered. TB1 Ag minus Nil 0.04 IU/ml 12/29/19 24 12:22 EDT [facility] TB2 Ag minus Nil 0.03 IU/mL 12/29/19 12:22 EDT [facility] Blood VENOUS BLOOD / Unknown Venipuncture / Unknown 12/27/2023 14:57 EDT 12/29/2023 12:07 EDT Anna Jones MD IMMUNOLOGY AND SEROL [employer] ORDERABLES [facility] [address] [place] [phone] * MEASLES IGG AB (12/27/2023 14:57 EDT) Measles IgG Ab Positive See Note 12/27/2023 21:49 EDT [facility] Comment:Presence of detectab le measles virus IgG antibodies. Blood VENOUS BLOOD / Unknown Venipuncture / Unknown 12/27/2023 14:57 EDT 12/27/2023 15:37 EDT Anna Jones MD IMMUNOLOGY AND SEROL [employer] ORDERABLES Performing Organization Address [facility]/ZIP Co de Phone Number [facility] [address] [place] [phone] * RUBELLA IGG ANTIBODY (12/27/2023 14:57 EDT) Rubella IgG Ab Positive See Note 12/27/2023 16:48 EDT [facility] Comment:The presence of Rube lla IgG suggests immunity against Rubella. Blood VENOUS BLOOD / Unknown Venipuncture / Unknown 12/27/2023 14:57 EDT 12/27/2023 15:37 EDT Anna Jones MD CHEMISTRY & BLOOD GA S ORDERABLES Performing Organization Address City/[facility]/ZIP Co de Phone Number [facility] [address] [place] [address] * HEPATITIS B SURFACE ANTIBODY (12/27/2023 14:57 EDT) Hep B Surface Ab, Quantitative 78.0 See Note mIU/mL 12/27/2023 17:08 EDT [facility] Comment: Clinical Interpretation [...] BLOOD GA S ORDERABLES Performing Organization Address [facility]/ZIP Co de Phone Number [facility] [address] [place] [address] * VARICELLA IGG ANTIBODY (12/27/2023 14:57 EDT) Varicella IgG Ab Positive See Note 12/27/2023 21:48 EDT [facility] Blood VENOUS BLOOD / Unknown Venipuncture / Unknown 12/27/2023 14:57 EDT 12/27/2023 15:37 EDT Anna Jones MD IMMUNOLOGY AND SEROL OGY ORDERABLES Performing Organization Address [facility]/ZIP Co de Phone Number [facility] [address] [place] [address] * MUMPS ANTIBODY IGG (12/27/2023 14:57 EDT) Mumps Antibody IgG Positive See Note 12/27/2023 21:50 EDT [facility] Comment:Presence of detectab le mumps virus IgG antibodies. Blood VENOUS BLOOD / Unknown Venipuncture / Unknown 12/27/2023 14:57 EDT 12/27/2023 15:37 EDT Anna Jones MD IMMUNOLOGY AND SEROL YESICAY ORDERABLES [facility] [address] [place] [address] * HEPATITIS C AB W REFLEX TO HCV RNA BY PCR (10/29/2021 11:50 EDT) Hep C Antibody Negative Negative 11/02/2021 11:10 EDT [facility] Blood VENOUS BLOOD / Unknown 10/29/2021 11:50 EDT 10/30/2021 17:06 EDT Provider Outr Resulting Lab CHEMISTRY & BLOOD GAS ORDERABLES [facility] [address] [place] [address] from Last 3 Months or Most Recently Relevant to Health Maintenance Care Teams Automobile Parker Relationship Specialty Start Date End Date Yazmin Mendez FNP [address] [place] [phone] PCP - General Family Medicine - Primary Care 12/27/23
--- OUTSIDE RECORDS SUMMARY | 2024-02-29 22:42 | XMS_ITS | Referral Summary ---
Author Organization [facility] Address [address] [place] [address] Care Team Providers Care Ceo And Founder Name Role Phone Yazmin Mendez PIPE FITTER MARINE Primary Care Provider [phone] Encounters Date Type Department Care Team Description 12/27/2023 14:45 EDT Phlebotomy Only [facility] - Outpatient Phlebotomy Drawing [address] [place] [id number] Lab, [facility] [place] [facility] [place]omy Immunity status testing; Screening-pulmonary TB 12/27/2023 Orders Only [facility] [address] [place] [address] Laura White RN Immunity status testing (Primary Dx); Screening-pulmonary TB from Last 3 Months Social History Tobacco Use Types Packs/Day Years Used Date Smoking Tobacco: Never Assessed Sex and Gender Information Value Date Recorded Sex Assigned at Not on file Gender Identity Male 12/27/2023 14:44 EDT Sexual Orientation Not on file Plan of Treatment Not on file Procedures Procedure Name Priority Date/Time Associated Diagnosis [...] OGY ORDERABLES Performing Organization Address [facility] Co de Phone Number [facility] [address] [place] [address] * QUANTIFERON TB2 (PERFORMABLE) (12/27/2023 14:57 EDT) Blood VENOUS BLOOD / Unknown Venipuncture / Unknown 12/27/2023 14:57 EDT 12/27/2023 15:06 EDT Anna Jones MD IMMUNOLOGY AND SEROL OGY ORDERABLES Performing Organization Address City/[facility]/ZIP Co de Phone Number [facility] [address] [place] [phone] * QUANTIFERON TB1 (PERFORMABLE) (12/27/2023 14:57 EDT) Blood VENOUS BLOOD / Unknown Venipuncture / Unknown 12/27/2023 14:57 EDT 12/27/2023 15:06 EDT Anna Jones MD IMMUNOLOGY AND SEROL OGY ORDERABLES Performing Organization Address [facility] Co de Phone Number [facility] [address] [place] [address] * QUANTIFERON NIL (PERFORMABLE) (12/27/2023 14:57 EDT) Blood VENOUS BLOOD / Unknown Venipuncture / Unknown 12/27/2023 14:57 EDT 12/27/2023 15:06 EDT Anna Jones MD IMMUNOLOGY AND SEROL OGY ORDERABLES Performing Organization Address [facility] de Phone Number [facility] [address] [place] [address] * QUANTIFERON INTERPRETATION (PERFORMABLE) (12/27/2023 14:57 EDT) [facility] Quantiferon Interpretation Negative Negative 12/29/2023 12:22 EDT [facility] Comment:No interferon-gamma response to M. tuberculosis antigens was detected. ??Infection with M. tuberculosis is unlikely. A single negative result does not exclude infection with M. tuberculosis. ??In patients at high risk for M. tuberculosis infection, a second test should be considered. TB1 Ag minus Nil 0.04 IU/ml 12/29/19 24 12:22 EDT [facility] TB2 Ag minus Nil 0.03 IU/mL 12/29/19 12:22 EDT [facility] Blood VENOUS BLOOD / Unknown Venipuncture / Unknown 12/27/2023 14:57 EDT 12/29/2023 12:07 EDT Anna Jones MD IMMUNOLOGY AND SEROL [employer] ORDERABLES Performing Organization Address City/[facility]/ZIP Co de Phone Number [facility] [address] [place] [address] * MEASLES IGG AB (12/27/2023 14:57 EDT) Measles IgG Ab Positive See Note 12/27/2023 21:49 EDT [facility] Comment:Presence of detectab le measles virus IgG antibodies. Blood VENOUS BLOOD / Unknown Venipuncture / Unknown 12/27/2023 14:57 EDT 12/27/2023 15:37 EDT Anna Jones MD IMMUNOLOGY AND SEROL OGY ORDERABLES Performing Organization Address [facility] Co de Phone Number [facility] [address] [place] [address] * RUBELLA IGG ANTIBODY (12/27/2023 14:57 EDT) Rubella IgG Ab Positive See Note 12/27/2023 16:48 EDT [facility] Comment:The presence of Rube lla IgG suggests immunity against Rubella. Blood VENOUS BLOOD / Unknown Venipuncture / Unknown 12/27/2023 14:57 EDT 12/27/2023 15:37 EDT Anna Jones MD CHEMISTRY & BLOOD GA S ORDERABLES Performing Organization Address City/[facility] Co de Phone Number [facility] [address] [place] [address] * HEPATITIS B SURFACE ANTIBODY (12/27/2023 14:57 EDT) Hep B Surface Ab, Quantitative 78.0 See Note mIU/mL 12/27/2023 17:08 EDT [facility] Comment: Clinical Interpretation of [...] S ORDERABLES Performing Organization Address [facility] Phone Number [facility] [address] [place] [address] * VARICELLA IGG ANTIBODY (12/27/2023 14:57 EDT) Varicella IgG Ab Positive See Note 12/27/2023 21:48 EDT [facility] Blood VENOUS BLOOD / Unknown Venipuncture / Unknown 12/27/2023 14:57 EDT 12/27/2023 15:37 EDT Anna Jones MD IMMUNOLOGY AND SEROL OGY ORDERABLES Performing Organization Address [facility] Number [facility] [address] [place] [address] * MUMPS ANTIBODY IGG (12/27/2023 14:57 EDT) Mumps Antibody IgG Positive See Note 12/27/2023 21:50 EDT [facility] Comment:Presence of detectab le mumps virus IgG antibodies. Blood VENOUS BLOOD / Unknown Venipuncture / Unknown 12/27/2023 14:57 EDT 12/27/2023 15:37 EDT Anna Jones MD IMMUNOLOGY AND SEROL OGY ORDERABLES Performing Organization Address [facility]/ZIP Co de Phone Number [facility] [address] [place] [address] * HEPATITIS C AB W REFLEX TO HCV RNA BY PCR (10/29/2021 11:50 EDT) Hep C Antibody Negative Negative 11/02/2021 11:10 EDT [facility] Blood VENOUS BLOOD / Unknown 10/29/2021 11:50 EDT 10/30/2021 17:06 EDT Provider Outr Resulting Lab CHEMISTRY & BLOOD GAS ORDERABLES [facility] [address] [place] [address] from Last 3 Months or Most Recently Relevant to Health Maintenance Care Teams Ceo And Founder Relationship Specialty Start Date End Date Yazmin Mendez FNP [address] [place] [phone] PCP - General Family Medicine - Primary Care 12/27/23
--- OUTSIDE RECORDS SUMMARY | 2024-02-29 22:42 | XMS_ITS | Data Portability ---
Author Organization [place] - [facility] Address [address] [place] [address] Assessment No assessment recorded. Plan of Treatment Reminders Order Date Submit Date Provider Last Modified By Organization Details Last Modified Time Details Appointments None recorded. Lab PSA, serum or plasma [address] [facility] (Registration ), [address] [place] [address] [place], [address], 4 07:28:36 lipid panel, serum [address] [facility] (Registration ), [address] [place] [address] [place], [address], 4 07:28:31 hemoglobin A1C, fingerstick 2023 024 [facility], [address] [place] [address], [place], [address], 4 12:05:02 BMP, serum or plasma [address] [facility] (Registration ), [address] [place] [address] [place], [address], 4 07:28:42 Referral None recorded. Procedures None recorded. Surgeries None recorded. Imaging None recorded. Medication Orders None recorded. Patient TargetsNo targets recorded. Patient Instructions Encounter Date Encounter Id Patient Instructions Last Modified By Organization Details Last Modified Time 10/11/2023 [id number] preventive care. Colon ca Screening: Prostate ca screening: Discussed, SDM at age 56 AAA Screening: N/A Low dose CT lung cancer screening: Non-smoker Diabetes screening. BMP with reflex to for hemoglobin A1c Lipids:/10 year ASCVD risk discussed, drawn today Vaccinations:HBV #1, shingles #1, Tdap, covid booster today, NV at 1 and 6 mo for next in series. We discussed breaking this up but he preferred all today. STI Screening: declines HCV/HIV Screening: Once adult lifetime screening today Depression: PHQ 2: 0 Advanced Directives: Discussed, gave hi ethics network handout Discussed diet, exercise, limiting EtOH to 2 or fewer per 24 hours, safety, dental, optho Updated family history and prior surgical history. [email or web address] Not available 10/11/2023 11:04:56 Reason for Referral None Reported. Results Created Date Observation Date Name Description Value Unit Range Abnormal Flag Note LastModifiedBy Organization Detail LastModifiedTime 10/11/19 24 10/11/2023 BASIC METAB OLIC PANEL calcium 9.2 mg/dL 8.5-10 .1 normal Not Available [address] [place], [address] 10/11/2023 16:26:51 10/11/19 24 10/11/2023 BASIC METAB OLIC PANEL glucose 92 mg/dL 74-106 normal Not Available Lavelle valadez [address] [place], [address] 10/11/2023 16:26:51 10/11/19 24 10/11/2023 BASIC METAB OLIC PANEL BUN 14 mg/dL 7-18 normal Not Available Lavelle valadez [address] [place], [address] 10/11/2023 16:26:51 10/11/19 24 10/11/2023 BASIC METAB OLIC PANEL creatinine 1.0 mg/dL 0.70-1 .30 normal Not Available [address] [place], [address] 10/11/2023 16:26:51 10/11/19 24 10/11/2023 BASIC METAB OLIC PANEL estimated GFR 90.56 mL/min /1.73m 2 The eGFR is calcu lated from a serum creat inine using the CKD-E PI 2020 equat ion. Other varia bles requi red for the equat ion are gende r and age; this equat ion does not inclu de a race coeff icien t. This equat ion has simil ar overa ll perfo rmanc e to previ ous equat ions excep t value s may diffe r, in parti cular , in patie nts with highe r value s of eGFR and young er-ag ed adult s. Not Available [address] [place], [address] 10/11/2023 16:26:51 10/11/19 24 10/11/2023 BASIC METAB OLIC PANEL sodium 140 mmol/ L 136-14 5 normal Not Available [address] [place], [address] 10/11/2023 16:26:51 10/11/19 24 10/11/2023 BASIC METAB OLIC PANEL potassium 4.6 mmol/ L 3.5-5. 1 normal Not Available [address] [place], [address] 10/11/2023 16:26:51 10/11/19 24 10/11/2023 BASIC METAB OLIC PANEL chloride 105 mmol/ L 98-107 normal Not Available [address] [place], [address] 10/11/2023 16:26:51 10/11/19 24 10/11/2023 BASIC METAB OLIC PANEL CO2 30.4 mmol/ L 21.0-3 2.0 normal Not Available [address] [place], [address] 10/11/2023 16:26:51 10/11/19 24 10/11/2023 BASIC METAB OLIC PANEL anion gap 4.6 mmol/ L 3-11 normal Not Available [address] [place], [address] 10/11/2023 16:26:51 10/11/19 24 10/11/2023 LIPID 2 cholesterol 193 mg/dL <200 Not Available Rahul ash [address] [place], [address] 10/11/2023 16:26:51 10/11/19 24 10/11/2023 LIPID 2 triglyceride 46 mg/dL <150 Not Available [address] [place], [address] 10/11/2023 16:26:51 10/11/19 24 10/11/2023 LIPID 2 HDL cholesterol 88 mg/dL 40-60 Not Available [email or web address] [place], [address] 10/11/2023 16:26:51 10/11/19 24 10/11/2023 LIPID 2 calculated LDL 96 mg/dL <100 Natio nal Leonora stero l Educa tion Progr am (NCEP -ATPI II) class ifica tions : Leonora stero l <200 mg/dL Desiree able Leonora stero l 200-2 39 mg/dL Borde rline High Leonora stero l >or=2 40 mg/dL High HDL <40 mg/dL Low HDL >or=6 0 mg/dL High LDL <100 mg/dL Optim al LDL 100-1 29 mg/dL Near Optim al/Ab ove Optim al LDL 130-1 59 mg/dL Borde rline High LDL 160-1 89 mg/dL High LDL >or=1 90 mg/dL Very High *The above refer ence range is for adult s 18 years or older . Not Available [address] [place], [address] 10/11/2023 16:26:51 10/11/19 24 10/12/2023 PSA, SCREE ALVARADO PSA, screening 0.7 NG/mL <=3.5 NOTE: Serum PSA hadley ntrat ion shoul d not be inter prete d as absol [place] evide nce for the prese nce or absen ce of lazaro pang se. Assay ed on Sieme ns ADVIA Centa ur XPT using chemi lumin escen t techn ology . Value s obtai reji by using diffe rent assay metho ds canno t be used inter escobedo eably . Test perfo rmed or refer red by [facility] [address] [place] [place] [address] Not Available [facility] [address] [place], [address] 10/13/2023 08:45:13 10/11/19 24 10/11/2023 hemog lobin A1C, gisele little hemoglobin A1C 5.2 % <5.7 Not Available [facility] [address] [facility], [place], [address], 10/11/2023 10:34:02 Result Notes None recorded. Problems Name Problem SNOMED Code Status Onset Date Resolution Date Notes Provider Name and Address Organization Details Recorded Time Acute pharyngi tis 484462699 Completed 201610/15/2016 10/02/19 17 - Comments only - Sherrell Trent MD - advised use of saline nasal irrigati on, other conserva tive measures . Problem Code: J02.9; Problem Code Type: ICD-10; Not Available [facility] 3 05:46:40 Hyperlip idemia screenin g Completed 202111/28/2021 Problem Code: Z13.220; Problem Code Type: ICD-10; Not Available [facility] 3 05:46:41 Diabetes mellitus screenin g Completed 202111/28/2021 Problem Code: Z13.1; Problem Code Type: ICD-10; Not Available [facility] 3 05:46:41 Adult health examinat ion Active 2021 Tita dick [facility] 4 14:57:40 Pneumoni a 775136720 Active 1994 With sepsis Tita dick [facility] 4 15:18:51 HIV screenin g Completed 202111/28/2021 Problem Code: Z11.4; Problem Code Type: ICD-10; Not Available [facility] 3 05:46:41 Viral screenin g Completed 202111/28/2021 Problem Code: Z11.59; Problem Code Type: ICD-10; Not Available [facility] 3 05:46:41 History of SARS-CoV -2 84930172130 4587211 [facility] 4 15:18:37 Obesity 072027178 Completed 201610/29/2021 Problem Code: E66.9; Problem Code Type: ICD-10; Not Available [facility] 3 05:46:42 Prediabe evie 714354868 Active [address], [facility] [address] , [facility] 4 11:12:22 Onychomy cosis of toenails 518200750 Active [address], [facility] [address] [place] [address] 4 11:12:22 Cramp in lower limb 539604815 Active [address], [facility] [address] , [facility] 4 11:13:34 Problem Notes None recorded. Medical Equipment None Reported. Allergies Allergen ID Allergen Name Allergen Category Reaction Reaction Severity Criticality Documentation Date Start Date Code Code System Note Provider Name and Address Organization Details Recorded Time 48348 kiwi fruit extract food hives other Not available Not available high 10/05/20232021 17116 01 RxNorm swoll en mouth , throa t, h[facility] 4 15:20:04 Medications Name Sig Start Date Stop Date Status Note LastModified by Organization Details LastModified Time Valtrex 500 mg tablet 1TAB three times daily 012 2011 completed Not Available Not Available Not Available ibuprofen 014 2016 completed Not Available Not Available Not Available Vitals Date Recorded Body height Body mass index (BMI) Body weight Body temperature Oxygen saturation Oxygen saturation in Arterial blood by Pulse oximetry Heart rate Provider Name and Address Organization Details Last Updated DateTime 4 177.8 cm 28.2 kg/m2 02711.2 6 g 97.3 [degF] 98 % 98 % 62 /min AGUILA DUTTA MA [facility] 10:16:03 Date Recorded Systolic blood pressure Diastolic blood pressure Provider Name and Address Organization Details Last Updated DateTime 10/11/2023 116 mm[Hg] 70 mm[Hg] JUAN DAVID RIVERA [address], [place], [address], [facility] 10/11/2023 10:50:21 Social History Question Answer Notes LastModified by Organizat ion Details LastModified Time Tobacco Smoking Status Never Smoker AGUILA DUTTA MA null, [facility] 10/11/2023 10:24:04 Would You Say That, In General, Your Health Is Very Good [email or web address] Information not available 10/11/2023 How Often Does Anyone, Including Family, Physically Hurt You? Never [email or web address] Information not available 10/11/2023 How Often Does Anyone, Including Family, Insult Or Talk Down To You? Never [email or web address] Information no t available 10/11/2023 How Often Does Anyone, Including Family, Threaten You With Harm? Never [email or web address] Information not available 10/11/2023 How Often Does Anyone, Including Family, Scream Or Curse At You? Never [email or web address] Information not available 10/11/2023 Within The Past 12 Months, You Worried That Your Food Would Run Out Before You Got Money To Buy More. Never True [email or web address] Information n ot available 10/11/2023 Within The Past 12 Months, The Food You Bought Just Didn't Last And You Didn't Have Money To Get More. Never True [email or web address] Information not available 10/11/2023 How Hard Is It For You To Pay For The Very Basics Like Food, Housing, Medical Care, And Heating? Would You Say It Is: Not Hard At All Information not available 10/11/2023 In The Past 12 Months, Has Lack Of Reliable Transportation Kept You From Medical Appointments, Meetings, Work Or From Getting Things Needed For Daily Living? No [email or web address] Information not available 10/11/2023 What Is Your Housing Situation Today? I Have Housing. [email or web address] Information not available 10/11/2023 How Often In The Past Year Have You Used Marijuana (including Smoking, Vaping, Dabbing, Or Edibles)? Monthly Or Less [email or web address] Information not available 10/11/2023 How Often In The Past Year Have You Used Prescription Medications That Were Not Prescribed To You? Never [email or web address] Information not available 10/11/2023 How Often In The Past Year Have You Taken Your Own Prescription Medication More Than The Way It Was Prescribed Or For Different Reasons Than Its Intended Purpose? Never [email or web address] Information not available 10/11/2023 How Often In The Past Year Have You Used Other Drugs (for Example, Heroin, Cocaine, Meth, Salvia, Inhalants)? Never [email or web address] Information not available 10/11/2023 Have You Ever Used IV Drugs? Yes [email or web address] Information not available 10/11/2023 Date Of Most Recent SBINS 10/11/2023 Information not available 10/11/2023 What Was The Date Of Your Most Recent Tobacco Screening? 10/11/2023 [email or web address] Information n ot available 10/11/2023 Do You Or Have You Ever Used Any Other Forms Of Tobacco Or Nicotine? No [email or web address] Information not available 10/11/2023 Sex: Male Functional Status None recorded. Mental Status None recorded. Family History Relationship Description Onset Age of this Age Resolved Age Notes LastModified by Organization Details LastModified Time Father Myocardial infarction [email or web address] Not available 10/10 10:13:33 Mother Polymyalgia rheumatica [email or web address] Not available 10/10 10:13:55 Notes:*Problem: Mother, b. 1 940,is alive has hyperlipidemia, HTN, stint placed, FH of heart disease Father, b. 1938, is alive and healthy w. hyperlipidemia, migraines, obesity, stomach cancer 1 sister, b. 1967, obese, depression He has a grandfather who of heart disease at the age of 76. (+) FH of CAD in maternal uncles FH of diabetes paternal grandfather hx of rectal cancer, congeintal heart failure, diabetes, obesity. paternal grandmother: lung cancer, obesity, diabetes. Medical History No medical history recorded. Immunizations Vaccine Type Date Status Provider Name and Address Organization Details Recorded Time COVID-19, mRNA, LNP-S, PF, osorio-sucrose, 30 mcg/0.3 mL 10/11/2023 completed AGUILA DUTTA MA [facility] [place] - [facility] 10/11/2023 14:57:16 Tdap 10/29/2021 completed Not Available [facility] 05:49:10 zoster recombinant 10/29/2021 completed Not Available [facility] 04/01/2023 05:49:11 zoster recombinant 12/31/2021 completed Not Available [facility] 04/01/2023 05:49:11 SARS-COV-2 (COVID-19) vaccine, UNSPECIFIED 08/03/2020 completed Not Available [facility] 04/01/2023 05:49:12 SARS-COV-2 (COVID-19) vaccine, UNSPECIFIED 03/14/2021 completed Not Available [facility] 04/01/2023 05:49:12 COVID-19, mRNA, LNP-S, PF, 30 mcg/0.3 mL dose, osorio-sucrose 10/29/2021 completed Not Available [facility] 04/01/2023 05:49:12 Hep B, adult 10/29/2021 completed Not Available [facility] 04/01/2023 05:49:13 Hep B, adult 12/31/2021 completed Not Available [facility] 04/01/2023 05:49:13 Hep B, adult 04/30/2022 completed Not Available [facility] 04/01/2023 05:49:13 Past Encounters Encounter ID Performer Location Encounter Start Date Encounter Closed Date Diagnosis/Indication Diagnosis SNOMED-CT Code Diagnosis ICD10 Code [id number] AGUILA DUTTA MA [address] [address] 10/11/2023 09:58:48 10/11/2023 11:20:37 Adult health examination 399114160 Z00.00 Active or passive immunization 052311036 Z23 Prediabetes 191602375 R7 3.03 Well adult 049235640 Z00 .00 Onychomyco sis of toenails 860877745 B35.1 Cramp in lower limb 4499 17360 R25.2 Hyperlipid emia screening 766311906 Z13.220 Screening for malignant neoplasm of prostate 920917047 Z12.5 Health Concerns Section Related Observation LastModified by Organization Detai ls LastModified Time None Recorded Concern Status LastModified by Organization Details LastModified Time None Recorded Advance Directives Directive None Recorded Payers Encounter Date Sequence Insurance Name Policy Number Policy Contreras Covered Member ID Contreras Member ID Guarantor Name 10/11/2023 1 [place] [employer] [facility] BLUE PLAN F (MEDICARE SUPPLEMENT) Alejandro Hartman [id number] Alejandro Hartman Notes Date Note Type Note Provider Name and Address Organization Details Recorded Time 10/11/2023 text/html HPI Notes: Rachid thakur presents for Annual Wellness Visit Here for Annual Review of chronic problems and health maintenance. Interval history form was reviewed, including comprehensive ROS form. Generally doing well in excellent health. 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 Good family support. Has with concerns about his A1c levels and improvement in leg muscle twitching and cramping. Prediabetes: previous A1c level of 5.8. The most recent A1c level was 5.2, indicating an improvement in the patient's blood sugar levels. Leg muscle twitching and cramping: Patient experienced muscle twitching and cramping in his left calf for months following a COVID-19 infection. The issue was most prominent during running or hiking, limiting his activity levels and necessitating walking breaks during exercise. The problem has since improved, with the patient now able to run a 5K without a walk break. Fungal toenail infection: Patient has been self-treating fungal toenail infection with vinegar and Listerine soaks, tea tree oil, and grinding off infected parts. The condition appears to be improving. RUPERTO CORTES, [place] - [facility]. 10/11/2023 14:57:19
--- OUTSIDE RECORDS SUMMARY | 2024-02-29 22:42 | XMS_ITS | Encounter Summary ---
Author Organization [facility] Address [address] [place] [address] Care Team Providers Care Metals Analyst Name Role Phone Yazmin Mendez [facility] Primary Care Provider Encounter Details Date Type Department Care Team (Late st Contact Info) Description 10/30/2021 Lab Requisition [facility] Pathology & Laboratory Medicine - [address] [address] Outr Resulting Lab, Provider Social History Tobacco [...] Procedure Name Priority Date/Time Associated Diagnosis Comments HEPATITIS C AB W REFLEX TO HCV RNA BY PCR Routine 10/29/2021 11:50 EDT documented in this encounter Results * HEPATITIS C AB W REFLEX TO HCV RNA BY PCR (10/29/2021 11:50 EDT) Hep C Antibody Negative Negative 11/02/2021 11:10 EDT [facility] Blood VENOUS BLOOD / Unknown 10/29/2021 11:50 EDT 10/30/2021 17:06 EDT Provider Outr Resulting Lab CHEMISTRY & BLOOD GAS ORDERABLES [facility] [address] [place] [address] documented in this encounter Visit Diagnoses Not on filedocumented in this encounter Care Teams Metals Analyst Relationship Specialty Start Date End Date Yazmin Mendez FNP [address] [place] [phone] PCP - General Family Medicine - Primary Care 12/27/23 documented as of this encounter
--- OUTSIDE RECORDS SUMMARY | 2024-02-29 22:42 | XMS_ITS | Encounter Summary ---
Author Organization [facility] Address [address] [place] [address] Care Team Providers Care Fence Post Driver Name Role Phone Yazmin Mendez [facility] Primary Care Provider Encounter Details Date Type Department Care Team (Late st Contact Info) Description 10/30/2021 Lab Requisition [facility] Pathology & Laboratory Medicine - [facility] [address] [place] [address] Outr Resulting Lab, Provider Social History Tobacco [...] Procedure Name Priority Date/Time Associated Diagnosis Comments HIV 1/2 ANTIGEN AND ANTIBODY, 4TH GENERATION Routine 10/29/2021 11:50 EDT documented in this encounter Results * HIV 1/2 ANTIGEN AND ANTIBODY, 4TH GENERATION (10/29/2021 11:50 EDT) HIV 1 and 2 Antibody/p24 Antigen, 4th Generation Negative Negative 11/02/2021 11:24 EDT [facility] Comment:If acute HIV-1 infec tion is suspected in a high risk patient, submit plasma specimen for HIV-1 RNA quantitation test. Blood VENOUS BLOOD / Unknown 10/29/2021 11:50 EDT 10/30/2021 17:06 EDT Narrative [facility] - 11/02/2021 11:24 EDT Fourth Generation assay performed on the Siemens Centaur XPT. Provider Outr Resulting Lab IMMUNOLOGY A ND SEROLOGY ORDERABLES [facility] [address] [place] [address] documented in this encounter Visit Diagnoses Not on filedocumented in this encounter Care Teams Fence Post Driver Relationship Specialty Start Date End Date Yazmin Mendez FNP [address] [place] [phone] PCP - General Family Medicine - Primary Care 12/27/23 documented as of this encounter
--- NOTE | 2024-03-01 00:09 | HPE_ITS ---
Date of service: 02/29/24 Time of Service: 23:35 Assessment and Plan Assessment and plan (1) TIA (transient ischemic attack): Start date: 02/29/24 Status: Acute Assessment and plan: This is a 64-year-old woman who presented with a short episode of expressive aphasia and associated tunnel vision with no focalizing peripheral vision loss. This lasted 10 minutes and then self resolved. He was started on therapy with negative CTA of the head and neck and pending MRI of the brain as well as echocardiogram with bubble study. He was on high-dose statin which will be continued. Lipid profile is elevated. Permissive hypertension. Frequent neurological checks as needed. Patient is a full code. (2) Disturbance in speech: Start date: 02/29/24 Status: Acute Assessment and plan: Patient had short episodes expressive aphasia which appear to be sudden onset like a switch and self resolving quickly gradually. This appears to be involving the left middle cerebral artery distribution. CT of the head was negative for stroke. MRI will be followed up with echocardiogram and bubble study for completion. Patient appears to have sinus bradycardia at and is a chronic runner with this being asymptomatic. He can follow-up with his PCP on this matter with his blood pressure stable. Most likely he can be on dual platelet therapy but statin therapy can be decided at discharge. Qualifiers: Speech disturbance type: aphasia Qualified Code(s): R47.01 - Aphasia History of Present Illness History of Present Illness Chief Complaint: Sudden onset expressive aphasia with visual changes. Narrative: This is a 64-year-old male patient who presented to the ED after a 10-minute episode of expressive aphasia at home which resolved by the time the EMS quickly responded to his spouse. He also had tunnel vision but no unilateral peripheral vision loss and felt as if he was going out of the not dizzy, sweaty or had any chest pain. He is very active on the medications and runs with what appears to be sinus bradycardia. He is not symptomatic from this. He is up-to-date with healthcare and preventative care and did not have elevated lipids when checked recently. He has never had cardiac events or neurological events. There is a very strong family history of heart disease and strokes. 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 He had no headache. CT of the head and neck was negative and teleneurology advised monitoring with telemetry with his troponin being trended which were negative and follow-up MRI of the brain in the morning with echocardiogram and bubble study. He is on dual platelet therapy which was initiated in the ED and will be continued. I did give him a high-dose statin with lipids to be checked in the morning. Long-term will need to follow-up with his PCP and neurology. He had no seizure-like activity and was not postictal after the episode. Seizures were entertained in the differential diagnosis. He is a full code. Review of Systems Narrative: 13 point review of systems otherwise unrevealing or stable. PFSH All Active Problems TIA (transient ischemic attack) (Acute) Brain TIA (Acute) Disturbance in speech (Acute) Social History Smoking/Tobacco Use Status: Never Smoking risk assessment performed?: Yes Alcohol Intake: current Alcohol Intake frequency: a few times a week Drug use: Never Substance use type: marijuana Housing: house Do you feel safe in your relationship?: Yes Meds Allergies and Home Medications Allergies Allergy/AdvReac Type Severity Reaction Status Date / Time kiwi Allergy Unknown Swelling/Ed Verified 02/29/24 20:52 cabrera Home Medications ?Medication ?Instructions ?Recorded ?Confirmed ?Type aspirin 81 mg chewable tablet 81 mg PO DAILY #90 tabs 03/01/24 Rx (Children's Aspirin) atorvastatin 40 mg tablet 80 mg (2 x 40 mg) PO QPM #90 tabs 03/01/24 Rx clopidogrel 75 mg tablet 75 mg PO DAILY #30 tabs 03/01/24 Rx Exam Narrative Exam Narrative: General: Patient is appropriate for age, mildly obese but also mesomorphic, alert and oriented x 3 and in no acute distress. He is well-spoken and insightful into his possible medical issues. He is not anxious. HEENT: Normocephalic, eyes with pupils equal and react light symmetrically, extraocular movement intact and sclera anicteric. Oropharynx with normal mucosa and normal dentition. Neck: Supple without JVD and no auscultated carotid bruits. Back: Normal posture without CVA tenderness. Lungs: Clear to auscultation percussion note focalizing rales or rhonchi. Normal vesicular breath sounds. Heart: Bradycardic rate with normal rhythm. No murmurs or gallops appreciated. Abdomen: Normal contour, soft and nontender to palpation no palpable hepatosplenomegaly. Bowel sounds positive all quadrants. Genitalia: Exam deferred. Extremities: No clubbing, cyanosis or pitting edema. Peripheral pulses intact. Skin: Normal color, warm and dry. Neuro: Cranial nerves II through XII gross intact, no focal motor deficits. DTR's are soft and symmetrical. No Babinski's. No tremor. Normal tone. See teleneurology exam. Psych: Normal affect and mood. No abnormal thought processes. Remote and recent memory intact. Results Imaging Imaging Studies: Exam: CTA Head Without And With Contrast, Arteriography Exam date and time: 02/29/2024 9:10 PM Age: 54 years old Clinical indication: Stroke-like symptoms; Speech disturbance; Additional info: TIA TECHNIQUE: Imaging protocol: Computed tomographic angiography of the head without and with contrast. Exam focused on the arteries. 3D rendering (Not supervised by radiologist): MIP and/or 3D reconstructed images were created by the technologist. Contrast material: OMNI 350; Contrast volume: 70 ml; Contrast route: INTRAVENOUS (IV); Other technique: STROKE PROTOCOL was implemented. COMPARISON: No relevant prior studies available. FINDINGS: ANTERIOR CIRCULATION: Right internal carotid artery: Intracranial segment is patent with no significant stenosis or occlusion. No aneurysm. Right middle cerebral artery: No occlusion or significant stenosis. No aneurysm. Right anterior cerebral artery: No occlusion or significant stenosis. No aneurysm. Left internal carotid artery: Intracranial segment is patent with no significant stenosis. No aneurysm. Left middle cerebral artery: No occlusion or significant stenosis. No aneurysm. Left anterior cerebral artery: No occlusion or significant stenosis. No aneurysm. POSTERIOR CIRCULATION: Right vertebral artery: No occlusion or significant stenosis. No aneurysm. Left vertebral artery: No occlusion or significant stenosis. No aneurysm. Basilar artery: No occlusion or significant stenosis. No aneurysm. Right posterior cerebral artery: No occlusion or significant stenosis. No aneurysm. Left posterior cerebral artery: No occlusion or significant stenosis. No aneurysm. HEAD: Brain: No intracranial hemorrhage or extra-axial fluid collection. No evidence of mass effect or midline shift. Doyle-white matter differentiation is intact. Cerebral ventricles: No ventriculomegaly. Bones: Unremarkable. No acute fracture. Paranasal sinuses: Visualized sinuses are normal. No fluid levels. Mastoid air cells: Visualized mastoids are normal. No mastoid effusion. Soft tissues: Unremarkable. IMPRESSION: 1. No intracranial arterial occlusion or significant stenosis. 2. No acute findings on non-contrast Head CT images. ASPECTS score 10. PROCEDURE INFORMATION: Exam: CTA Neck With Contrast Exam date and time: 02/29/2024 9:10 PM Age: 54 years old Clinical indication: Stroke-like symptoms; Speech disturbance; Additional info: TIA TECHNIQUE: Imaging protocol: Computed tomographic angiography of the neck with contrast. Exam focused on the cervical segments of the vasculature. 3D rendering (Not supervised by radiologist): MIP and/or 3D reconstructed images were created by the technologist. Contrast material: OMNI 350; Contrast volume: 70 ml; Contrast route: INTRAVENOUS (IV); COMPARISON: No relevant prior studies available. FINDINGS: Right common carotid artery: No significant stenosis. No dissection or occlusion. Right internal carotid artery: Extracranial segment is patent with no significant stenosis (0% stenosis by NASCET criteria). No dissection or occlusion. Right external carotid artery: No occlusion or significant stenosis. Left common carotid artery: No significant stenosis. No dissection or occlusion. Left internal carotid artery: Extracranial segment is patent with no significant stenosis (0% stenosis by NASCET criteria). No dissection or occlusion. Left external carotid artery: No occlusion or significant stenosis. Right vertebral artery: No significant stenosis. No dissection or occlusion. Left vertebral artery: No significant stenosis. No dissection or occlusion. Soft tissues: Unremarkable. Bones/joints: No acute fracture. IMPRESSION: No occlusion or significant stenosis in the arteries of the neck. Labs 03/01/24 06:25 03/01/24 06:25 Labs: Laboratory Results - last 24 hr 02/29/24 02/29/24 20:51 22:08 WBC 6.60 RBC 4.51 Hgb 13.5 Hct 40.4 MCV 90 MCH 29.9 MCHC 33.4 RDW 11.3 L Plt Count 237 MPV 9.0 Immature Gran % 0.2 Neutrophils % 47.1 Lymphocytes % 37.9 Monocytes % 8.8 Eosinophils % 5.2 Basophils % 0.8 Nucleated RBC % 0.0 Absolute Neutrophils 3.12 Absolute Lymphocytes 2.50 Absolute Monocytes 0.58 Absolute Eosinophils 0.34 Absolute Basophils 0.05 PT 11.0 INR 1.1 APTT 24.6 Sodium 144 Potassium 3.8 Chloride 105 Carbon Dioxide 30.8 Anion Gap 8.2 BUN 22 H Creatinine 1.4 H Est GFR (CKD-EPI 2020) 60.10 Glucose 103 Calcium 9.0 Total Bilirubin 0.28 AST 24 ALT 27 Alkaline Phosphatase 49 Troponin I 10 11 Total Protein 6.9 Albumin 3.8 Ethyl Alcohol 3.3 Last Vital Signs Temp 36.4 C 02/29/24 20:44 Pulse 57 L 02/29/24 23:15 Resp 17 02/29/24 23:16 BP 132/96 H 02/29/24 23:15 Pulse Ox 97 02/29/24 23:16 Time Spent Time spent with Patient: 55-74 minutes Time was spent: preparing to see the patient(eg.review tests), obtaining and/or reviewing separately otained hiistory, ordering medications,tests, procedures, referring, communicating with other health acute care surgeon, indepentently interpreting results, counseling the patient and care coordination
[2024-03-01 00:26] LABS: Bilirubin Negative (Negative); Blood Negative (Negative); Clarity Clear (Clear); Glucose Negative (Negative); Ketones Negative (Negative); Leukocyte Esterase Negative (Negative); Nitrite Negative (Negative); Urobilinogen 0.2 mg/dL (Up to 0.2)
[2024-03-01 00:35] LABS: Troponin I 11 ng/L (<or=76)
[2024-03-01 00:52] VITALS: BP 116/83; PULSE 60; RESP 16; TEMP 36.5; O2SAT 95
[2024-03-01] MEDS: Atorvastatin 40 MG TAB 80 MG PO (01:12)
[2024-03-01 01:23] VITALS: BP 120/82; PULSE 54; RESP 18; TEMP 36.1; O2SAT 98
--- NOTE | 2024-03-01 01:30 | W.PC.ACHO ---
Registration Status: Primary Language: Preferred Language: ED Information & Data Chief Complaint CVA/TIA 02/29/24 21:03 Triage Note BIBA , pt states that he 02/29/24 20:44 experienced an episode of visual disturbance and aphasia. Pt states he was having a hard time getting words out and what came out sounded garbled. Pt states at that time he felt that he was going to black out. Does not appear to have any deficits. Pt states that everything has resolved at this time. No medical hx Most Recent Vital Signs Temperature 36.1 C L 03/01/24 01:23 Temperature Source Temporal Artery Scan 03/01/24 01:23 Pulse 54 L 03/01/24 01:23 Respiratory Rate 18 03/01/24 01:23 Respiratory Effort Normal 02/29/24 20:49 Respiratory Depth Normal 02/29/24 20:49 Respiratory Pattern Normal 02/29/24 20:49 Blood Pressure 120/82 03/01/24 01:23 Blood Pressure Position Sitting 02/29/24 20:44 Pulse Oximetry 98 03/01/24 01:23 Oxygen Delivery Method Room Air 03/01/24 01:23 Oxygen Flow Rate 0 03/01/24 01:23 Pain Level 0 03/01/24 01:23 Comment HR rate runs low high 40's and 50's. 03/01/24 01:23 Allergies kiwi Allergy (Unknown, Verified 02/29/24 20:52) Swelling/Edema Precautions Isolation Standard precaution 02/29/24 20:47 Active Medications Generic Name Dose Route Start Last Admin Trade Name Beckq PRN Reason Stop Dose Admin Iohexol 100 ml 02/29/24 21:15 02/29/24 21:09 Omnipaque 350 Mg/Ml 100 Ml Btl IJ 03/30/24 23:59 70 ml DIRECTED FAHEEM Administration Sodium Chloride 50 ml 02/29/24 21:15 02/29/24 21:08 Normal Saline - Diluent 50 Ml Vial IJ 50 ml .FOR DI USE FAHEEM Administration IV IV Catheter Type [Left Saline Lock Antecubital] IV Catheter Gauge [Left 18 Antecubital] Diet Orders Category Date Time Status Heart Healthy Eating [DIET] Nutrition 03/01/24 Breakfast Active Diagnostics 03/01/24 03/01/24 03/01/24 Range/Units 05:35 00:13 00:11 WBC Pending (4.4-10.8) 10^3/uL RBC Pending (4.36-5.78) 10^6/uL Hgb Pending (13.5-17.5) g/dL Hct Pending (40.0-50.0) % MCV Pending (80-95) fL MCH Pending (27.0-33.0) pg MCHC Pending (32.0-36.0) % RDW Pending (11.8-14.1) % Plt Count Pending (130-400) 10^3/uL MPV Pending (8.0-11.0) fL Immature Gran % % Neutrophils % % Lymphocytes % % Monocytes % % Eosinophils % % Basophils % % Nucleated RBC % (0.0-0.3) % Absolute Neutrophils (1.2-6.7) 10^3/uL Absolute Lymphocytes (1.2-3.4) 10^3/uL Absolute Monocytes (0.1-0.8) 10^3/uL Absolute Eosinophils (0.0-0.7) 10^3/uL Absolute Basophils (0.0-0.2) 10^3/uL PT (9.1-11.1) sec INR (0.9-1.1) APTT (23.6-32.8) sec Sodium Pending (136-145) mmol/L Potassium Pending (3.5-5.1) mmol/L Chloride Pending (98-107) mmol/L Carbon Dioxide Pending (21.0-32.0) mmol/L Anion Gap Pending (3-11) mmol/L BUN Pending (7-18) mg/dL Creatinine Pending (0.70-1.30) mg/dL Est GFR (CKD-EPI 2020) Pending (mL/min/1.73m2) Glucose Pending (74-106) mg/dL Calcium Pending (8.5-10.1) mg/dL Magnesium Pending Total Bilirubin Pending (0.2-1.0) mg/dL AST Pending (15-37) U/L ALT Pending (16-63) U/L Alkaline Phosphatase Pending (46-116) U/L Troponin I 11 (<or=76) ng/L Total Protein Pending (6.4-8.2) g/dL Albumin Pending (3.4-5.0) g/dL Triglycerides Pending Total Cholesterol Pending LDL Cholesterol, Calc Pending HDL Cholesterol Pending TSH Urine Color Yellow (Yellow) Urine Clarity Clear (Clear) Urine pH 6.0 (5-8) Ur Specific [place] 1.010 (1.005-1.025) Urine Protein Negative (Neg-Trace) mg/dL Urine Ketones Negative (Negative) mg/dL Urine Blood Negative (Negative) Urine Nitrite Negative (Negative) Urine Bilirubin Negative (Negative) Urine Urobilinogen 0.2 (Up to 0.2) mg/dL Ur Leukocyte Esterase Negative (Negative) Urine Glucose Negative (Negative) mg/dL Ethyl Alcohol (<10) mg/dL 03/01/24 02/29/24 02/29/24 Range/Units 00:04 22:08 20:51 WBC 6.60 (4.4-10.8) 10^3/uL RBC 4.51 (4.36-5.78) 10^6/uL Hgb 13.5 (13.5-17.5) g/dL Hct 40.4 (40.0-50.0) % MCV 90 (80-95) fL MCH 29.9 (27.0-33.0) pg MCHC 33.4 (32.0-36.0) % RDW 11.3 L (11.8-14.1) % Plt Count 237 (130-400) 10^3/uL MPV 9.0 (8.0-11.0) fL Immature Gran % 0.2 % Neutrophils % 47.1 % Lymphocytes % 37.9 % Monocytes % 8.8 % Eosinophils % 5.2 % Basophils % 0.8 % Nucleated RBC % 0.0 (0.0-0.3) % Absolute Neutrophils 3.12 (1.2-6.7) 10^3/uL Absolute Lymphocytes 2.50 (1.2-3.4) 10^3/uL Absolute Monocytes 0.58 (0.1-0.8) 10^3/uL Absolute Eosinophils 0.34 (0.0-0.7) 10^3/uL Absolute Basophils 0.05 (0.0-0.2) 10^3/uL PT 11.0 (9.1-11.1) sec INR 1.1 (0.9-1.1) APTT 24.6 (23.6-32.8) sec Sodium 144 (136-145) mmol/L Potassium 3.8 (3.5-5.1) mmol/L Chloride 105 (98-107) mmol/L Carbon Dioxide 30.8 (21.0-32.0) mmol/L Anion Gap 8.2 (3-11) mmol/L BUN 22 H (7-18) mg/dL Creatinine 1.4 H (0.70-1.30) mg/dL Est GFR (CKD-EPI 2020) 60.10 (mL/min/1.73m2) Glucose 103 (74-106) mg/dL Calcium 9.0 (8.5-10.1) mg/dL Magnesium Total Bilirubin 0.28 (0.2-1.0) mg/dL AST 24 (15-37) U/L ALT 27 (16-63) U/L Alkaline Phosphatase 49 (46-116) U/L Troponin I 11 10 (<or=76) ng/L Total Protein 6.9 (6.4-8.2) g/dL Albumin 3.8 (3.4-5.0) g/dL Triglycerides Total Cholesterol LDL Cholesterol, Calc HDL Cholesterol TSH Pending Urine Color (Yellow) Urine Clarity (Clear) Urine pH (5-8) Ur Specific [place] (1.005-1.025) Urine Protein (Neg-Trace) mg/dL Urine Ketones (Negative) mg/dL Urine Blood (Negative) Urine Nitrite (Negative) Urine Bilirubin (Negative) Urine Urobilinogen (Up to 0.2) mg/dL Ur Leukocyte Esterase (Negative) Urine Glucose (Negative) mg/dL Ethyl Alcohol 3.3 (<10) mg/dL [id number] Documentation Fingerstick Glucose Start: 02/29/24 20:52 Freq: Status: Complete Protocol: Activity Type Activity Date Activity User E-sign Co-sign Detail Recorded Client Recorded Date Recorded By Document 02/29/24 20:51 BKG DAEMON(3) [id number] 02/29/24 20:52 BKG DAEMON(4) Intake and Output - 24 Hour Total 02/29/24 20:40 thru 03/01/24 01:23 Weight 83.3 kg Falls Risk Assessment History of Falls No History 02/29/24 20:52 Contributing Factors No Factors 02/29/24 20:52 Ambulatory Aids Independent 02/29/24 20:52 Tubes/Lines None 02/29/24 20:52 Gait Evaluation No gait disturbance 02/29/24 20:52 Cognition No cognitive impairment 02/29/24 20:52 Fall Total Score 0 02/29/24 20:52 Level of Risk Standard/Low Risk 02/29/24 20:52 Problems (Last Reviewed 03/01/24 @ 00:12 by Gumaro Vance) TIA (transient ischemic attack) (Acute) Disturbance in speech (Acute) v v v v v v v v v Sending and/or Receiving Nurses: Please use comment section below to note any information pertinent to the patient hand-off not included above. Information / Comments:no symptoms now. Report received from:Lila Cadet.
[2024-03-01 01:41] VITALS: BP 120/82; PULSE 54; RESP 18; TEMP 36.1; O2SAT 98
[2024-03-01 08:00] VITALS: BP 112/83; PULSE 55; RESP 18; TEMP 35.7; O2SAT 98
--- NOTE | 2024-03-01 08:00 | DI.US_ITS ---
APPROVED REPORT EXAM: Comprehensive 2D, Doppler, and color-flow Echocardiogram Patient Location: In-Patient Room/Bed: 211 Production Operations Engineer: Apurva Pope RDCS (AE) Indications: TIA with speech deficit Echo Enhancing Agent Indication: Rule out Shunt Agent(s) / Amount(s) Used: Agitated Saline 20.0 cc Comments: Contrast study was performed with 2 IV injections of 10ccs of agitated normal saline, at re st and with cough. Positive contrast study for right to left shunt flow. Other Information Study Quality: Fair. Technically limited study due to body habitus, exam done bedside. Conclusion Normal left ventricular wall thickness and chamber size. Ejection fraction is 60%. Wall motion is n ormal Both atria appear normal in size Shunting is demonstrated with injection of agitated saline. Interatrial septum is also consistent wi th PFO just on the imaging There is no structural or hemodynamically significant valvular disease Ascending aorta measures 4.12 cm Wall motion Left Ventricle The left ventricle is normal size. The overall left ventricular systolic function appears normal. Thuy tated saline contrast injection was given. There is normal left ventricular wall thickness. Regional wall motion is grossly normal. There is no ventricular septal defect visualized. LVEF is 60%. Right Ventricle Right ventricle is not well visualized. Right ventricular systolic function could not be assessed. Atria The left atrium size is normal. The right atrium size is normal. Saline bubble contrast intravenous i njection demonstrates PFO. Aortic Valve Aortic valve is trileaflet. There is no aortic valvular stenosis. No aortic regurgitation is present. Mitral Valve The mitral valve is normal in structure. No evidence of mitral valve stenosis. Trace mitral regurgita tion. Tricuspid Valve The tricuspid valve is normal in structure. There is no tricuspid valve stenosis. Trace tricuspid reg urgitation. Unable to assess PA pressure. Pulmonic Valve The pulmonary valve is normal in structure. There is no pulmonic valvular stenosis. There is no pulmo ron valvular regurgitation. Great Vessels The aortic root is normal in size. The ascending aorta is moderately dilated. Aortic arch is not well visualized. IVC is normal in size and collapses >50% with inspiration. Pericardium There is no pericardial effusion. 2D Dimensions IVSD d PLAX 0.90 cm M: 0.6-1.2 Ao Root d 3.46 cm M: 3.1 - 3.7 LVPW d PLAX 0.91 cm M: 0.6 - 1.2 Ao Asc Diam d 4.12 cm M: 2.6 - 3.4 LVID d PLAX 5.35 cm M: 4.2 - 5.8 LVDs 3.61 cm M: 2.5 - 4.0 LV EF Teichholz 60.3 % FS 32.44 % LV EDV (Teich) 138.2 mL LV ESV (Teich) 54.9 mL M-Mode TAPSE 2.80 cm (M/F) >1.7 Auto EF LV EDV A4C 163.3 mL LV EDV A2C 153.0 mL LV EDV BP 157.3 mL LV ESV A4C 70.6 mL LV ESV A2C 65.1 mL LV ESV BP 67.9 mL LVEF(%) A4C 56.8 % LVEF(%) A2C 57.4 % LVEF(%) BP 56.8 % LV SV A4C 92.7 ml LV SV A2C 87.9 ml LV SV BP 89.4 ml LV CO A4C 4.9 L/min LV CO A2C 4.5 L/min LV CO BP 4.7 L/min HR A4C 52.40 BPM HR A2C 50.92 BPM LV EDV Index (BP) LV Diastology MV E' medial 0.118 (>0.07 m/s) MV E Vmax 0.77 (0.4-1.3 m/s) MV E/E' MED 6.58 (<14) MV A Vmax 0.50 (0.4-1.3 m/s) MV E' lateral 0.134 (>0.1 m/s) E/A Ratio 1.5 MV E/E' LAT 5.79 (<14) MV E' Average 0.126 m/s MV E/E'(average) 6.16 Aortic Valve AoV Vmax 0.94 m/s LVOT Vmax 0.96 m/s AoV Peak Grad 3.5 mmHg LVOT Peak Grad 3.7 mmHg AoV Area (Vmax) 4.09 cm2 LVOT VTI 0.233 m AoV VTI 0.250 m LVOT Mean Grad 2.3 mmHg AoV Mean Rhys. 0.68 m/s LVOT SV 92.89 mL AoV Mean Grad 2.1 mmHg LVOT Diam s 2.25 cm AoV Area (VTI) 3.72 cm2 AV Regurg Peak Gr. 3.51 mmHg Velocity Ratio 1.02 Mitral Valve MV DT 175 (160-240 msec) MV Vmax TIPS 0.79 m/s MV Mean Grad 0.7 (<2mmHg) MV VTI 0.269 m Pulmonary Valve PV Vmax 1.03 (0.5-1.5 m/s) RVOT Vmax 0.79 m/s PV Peak Grad 4.2 mmHg RVOT Peak Gr. 2.5 mmHg PV Mean Rhys 0.75 m/s RVOT VTI 0.215 m PV Mean Grad 2.5 mmHg RVOT Mean Gr. 1.2 mmHg Tricuspid Valve RA Pressure 3.00 mmHg TV S' 0.16 m/s
--- NOTE | 2024-03-01 08:00 | DI.MRI_ITS ---
Exam(s) MR BRAIN WO EXAM: MR BRAIN WO CLINICAL HISTORY: TIA with speech deficit TECHNIQUE: Multiplanar multisequence MRI of the brain was performed. COMPARISON: CT CT BRAIN NECK CTA from 02/29/2024 FINDINGS: CEREBRAL PARENCHYMA: There is no evidence of intracranial hemorrhage, mass effect, or shift of midline structures. There are no extra-axial fluid collections. Ventricles are not enlarged or shifted. There is no significant focal signal abnormality in the cerebellar hemispheres nor within the zak, m idbrain, and thalami. There is no abnormal signal abnormality in the periventricular white matter. There is no significant focal signal abnormality evident on diffusion imaging to suggest acute ischem ic event. SWI: No evidence of microhemorrhages. PITUITARY GLAND: No mass nor parasellar abnormality. No obvious abnormality in the cavernous sinuses. FLOW VOIDS: The expected flow void are noted. No evidence of obvious aneurysm nor obvious vascular ma lformation. PARANASAL SINUSES: There is some mucosal thickening and post inflammatory retention cyst in the right maxillary sinus. Mild mucosal thickening left maxillary sinus and other paranasal sinuses. No flui d levels in the sinuses evident. No effusions in the mastoid air cells. ORBITS: No obvious findings. IMPRESSION: No significant acute intracranial findings on this noninfused MRI scan of the brain. Paranasal sinus disease as described above. DATA REPOSITORY:
[2024-03-01] MEDS: Aspirin 81 MG CHEW PO (08:35)
[2024-03-01] MEDS: Heparin 5,000 UNITS/ML VIAL 5000 UNITS SC (08:35)
[2024-03-01] MEDS: Clopidogrel 75 MG TAB PO (08:35)
[2024-03-01 09:10] LABS: HCT 39.4 % (40.0-50.0); HGB 13.3 g/dL (13.5-17.5); MCH 30.2 pg (27.0-33.0); MCHC 33.8 % (32.0-36.0); MCV 89 fL (80-95); MPV 9.1 fL (8.0-11.0); Platelet Count 245 10^3/uL (130-400); RBC 4.41 10^6/uL (4.36-5.78); RDW 11.4 % (11.8-14.1); WBC 4.88 10^3/uL (4.4-10.8)
[2024-03-01 11:32] VITALS: BP 110/86; PULSE 50; RESP 18; TEMP 36.6; O2SAT 99
[2024-03-01] MEDS: Normal Saline Flush 10 ML SYR IVP (11:56)
[2024-03-01 12:32] LABS: BUN 18 mg/dL (7-18); CREATININE 1.1 mg/dL (0.70-1.30); Calcium 8.9 mg/dL (8.5-10.1); Estimated GFR 80.27 (mL/min/1.73m2); Glucose 88 mg/dL (74-106); Total Protein 6.4 g/dL (6.4-8.2)
[2024-03-01 12:33] LABS: ALT 25 U/L (16-63); AST 24 U/L (15-37); Albumin 3.5 g/dL (3.4-5.0); Alkaline Phosphatase 42 U/L (46-116); Anion Gap 8.2 mmol/L (3-11); Bilirubin, Total 0.59 mg/dL (0.2-1.0); CO2 28.8 mmol/L (21.0-32.0); Chloride 108 mmol/L (98-107); Magnesium 2.2 mg/dL (1.8-2.4); Potassium 3.8 mmol/L (3.5-5.1); Sodium 145 mmol/L (136-145)
[2024-03-01 12:34] LABS: Calculated LDL 110 mg/dL (<100); Cholesterol 189 mg/dL (<200); HDL Cholesterol 72 mg/dL (40-60); Triglyceride 38 mg/dL (<150)
--- NOTE | 2024-03-01 12:35 | PHA.REVIEW2 ---
Pharmacy Admission Review Admission Clinical Review Admission Pharmacy Review: TIA (transient ischemic attack) (Acute) Disturbance in speech (Acute) kiwi Allergy (Unknown, Verified 02/29/24 20:52) Swelling/Edema Resuscitation Status Full Code Height 5 ft 10 in Weight 83.3 kg Comments Comments/Follow Ups: Per morning meeting plan is to discharge if MRI is normal Pharmacy Admission Review Renal Dosing Renal Dosing: BUN 18 mg/dL (7-18) 03/01/24 06:25 Creatinine 1.1 mg/dL (0.70-1.30) 03/01/24 06:25 Medications needing adjustments: Reviewed (CrCl 91 mL/min, BUN decreased from 22 and SCr decreased from 1.4) List of meds needing interventions: Current medications are okay Anticoagulation Anticoagulation: Hgb 13.3 g/dL (13.5-17.5) L 03/01/24 06:25 Hct 39.4 % (40.0-50.0) L 03/01/24 06:25 Plt Count 245 10^3/uL (130-400) 03/01/24 06:25 INR 1.1 (0.9-1.1) 02/29/24 20:51 Creatinine 1.1 mg/dL (0.70-1.30) 03/01/24 06:25 DVT Prophylaxis: Reviewed (Hgb decreased from 13.5) Medications: Heparin (q8h) Relevant Labs Relevant Labs: Sodium 145 mmol/L (136-145) 03/01/24 06:25 Potassium 3.8 mmol/L (3.5-5.1) 03/01/24 06:25 Chloride 108 mmol/L (98-107) H 03/01/24 06:25 Magnesium 2.2 mg/dL (1.8-2.4) 03/01/24 06:25 Electrolytes, C-Reactive P, ESR: Reviewed Cardiac Review Cardiac Review: Troponin I 11 ng/L (<or=76) 03/01/24 00:11 BP, HR, EF%: Reviewed (BP WNL, HR has been in low 50s) QTc Review QTc: Reviewed (408 from 02/29/24) IV to PO Switch IV Medications: Reviewed Home Meds Home Med List reviewed: Reviewed Relevent Home Meds Not ordered & why?: No known home meds Current Meds Current Medication Order Review: Reviewed Comments Comments/Follow Ups: Per morning meeting plan is to discharge if MRI is normal
[2024-03-01 12:36] LABS: TSH (W/Ref FT4) 3.97 uIU/mL (0.36-3.74)
[2024-03-01 12:58] LABS: FREE T4 0.97 ng/dL (0.76-1.46)
--- NOTE | 2024-03-01 14:07 | CHAPLAIN ---
Alejandro was in the chair, dressed in his own clothes when I visited. He said he's waiting to ask the hospitalist some questions and then hopes to be discharged. His is three minutes away, he said. Alejandro said he'd like to learn from the doctor how to keep this experience from happening again and what he needs to do to prevent it from happening again.
--- NOTE | 2024-03-01 14:20 | W.PM.DS.N ---
Date of service: 03/01/24 Time of Service: 14:20 DS: Diagnosis Discharge Diagnosis (1) TIA (transient ischemic attack): Status: Acute (2) Disturbance in speech: Status: Acute Discharge Plan Disposition Patient Disposition: Home Condition: Good Discharge Details Reason For Visit: TIA Admit Date/Time: 02/29/24 23:59 Admit Provider: Gumaro Vance Attending Provider: Gumaro Vance Primary Care Provider: Yazmin Mendez Hospital Course Hospital Course: Patient initially presented with signs and symptoms that were consistent with a TIA with dysphagia-like symptoms that resolved spontaneously. CT and MRI of the head negative, however echocardiogram with bubble study did show a PFO. Patient was started on dual to platelet 30 pain in the emergency department which will be continued for 30 days after which time he will continue on aspirin. Given PFO, patient will have order for cardiac event monitor as well as follow-ups with neurology and interventional cardiology. Home Meds and New Rx's Prescriptions: New aspirin [Children's Aspirin] 81 mg Tablet,Chewable 81 mg PO DAILY Qty: 90 0RF atorvastatin 40 mg Tablet 80 mg PO QPM Qty: 90 0RF clopidogrel 75 mg Tablet 75 mg PO DAILY Qty: 30 0RF Discharge Instructions Referrals: [facility] [Outside] (Interventional Cardiology) Margie Gutierrez MD [ [facility] STAFF PHYSICIAN] - Activity:: Activity as Tolerated Equipment/Supplies:: No Equipment Needed Diet:: As Tolerated Discharge Orders Discharge Orders: Discharge Order (Routine); Ordered 03/01/24 Ordered By: Speedy Collins Other Ambulatory Orders: 14 Day Elevator Service Technician (Routine) Timeframe: 10 Day Facility: [facility] - Location: Respiratory Therapy Ordered By: Speedy Collins DS: Summary Time Spent with Patient providing and/or coordinating discharge services: Greater than 30 minutes Status at Discharge Functional status at discharge: independent ambulation Overall status at discharge: patient is back to baseline Mental Status: mental status grossly normal Speech and Movement: speech and movement normal Mood: congruent mood Affect: normal affect Quality:SDOH Health Related Social Needs: No Data to Display Exam Narrative Exam Narrative: Well-appearing gentleman sitting up in the chair no acute distress, ANO x 4, heart regular rhythm, lungs clear to auscultation bilaterally, abdomen soft, nontender, nondistended, cranial nerves II through XII intact with normal sensation and strength in bilateral upper and lower extremities Psych Mental Status: mental status grossly normal Speech and Movement: speech and movement normal Mood: congruent mood Affect: normal affect DS: Data Vitals/I&O Vitals and I&O: Vital Signs Temperature 97.9 F 03/01/24 11:32 Temperature Source Tympanic 03/01/24 11:32 Pulse 50 L 03/01/24 11:32 Pulse Rhythm Regular 03/01/24 01:41 Respiratory Rate 18 03/01/24 11:32 Respiratory Effort Normal 03/01/24 01:41 Respiratory Depth Normal 03/01/24 01:41 Respiratory Pattern Normal 03/01/24 01:41 Blood Pressure 110/86 03/01/24 11:32 Blood Pressure Position Sitting 02/29/24 20:44 Pulse Oximetry 99 03/01/24 11:32 Oxygen Delivery Method Room Air 03/01/24 11:32 Oxygen Flow Rate 0 03/01/24 11:32 Pain Level 0 03/01/24 11:32 Comment HR rate runs low high 40's and 50's. 03/01/24 01:23 Intake & Output 02/29/24 03/01/24 03/01/24 17:59 05:59 17:59 Weight 183 lb 10.321 oz Other: Voiding Methods Toilet Data Completed and Pending Labs on day of discharge: Labs from last 24 hours 03/01/24 03/01/24 03/01/24 06:25 00:13 00:11 WBC 4.88 RBC 4.41 Hgb 13.3 L Hct 39.4 L MCV 89 MCH 30.2 MCHC 33.8 RDW 11.4 L Plt Count 245 MPV 9.1 Immature Gran % Neutrophils % Lymphocytes % Monocytes % Eosinophils % Basophils % Nucleated RBC % Absolute Neutrophils Absolute Lymphocytes Absolute Monocytes Absolute Eosinophils Absolute Basophils PT INR APTT Sodium 145 Potassium 3.8 Chloride 108 H Carbon Dioxide 28.8 Anion Gap 8.2 BUN 18 Creatinine 1.1 Est GFR (CKD-EPI 2020) 80.27 Glucose 88 Calcium 8.9 Magnesium 2.2 Total Bilirubin 0.59 AST 24 ALT 25 Alkaline Phosphatase 42 L Troponin I 11 Total Protein 6.4 Albumin 3.5 Triglycerides 38 Total Cholesterol 189 LDL Cholesterol, Calc 110 H HDL Cholesterol 72 TSH 3.97 H Free T4 0.97 Urine Color Yellow Urine Clarity Clear Urine pH 6.0 Ur Specific [place] 1.010 Urine Protein Negative Urine Ketones Negative Urine Blood Negative Urine Nitrite Negative Urine Bilirubin Negative Urine Urobilinogen 0.2 Ur Leukocyte Esterase Negative Urine Glucose Negative Ethyl Alcohol 02/29/24 02/29/24 22:08 20:51 WBC 6.60 RBC 4.51 Hgb 13.5 Hct 40.4 MCV 90 MCH 29.9 MCHC 33.4 RDW 11.3 L Plt Count 237 MPV 9.0 Immature Gran % 0.2 Neutrophils % 47.1 Lymphocytes % 37.9 Monocytes % 8.8 Eosinophils % 5.2 Basophils % 0.8 Nucleated RBC % 0.0 Absolute Neutrophils 3.12 Absolute Lymphocytes 2.50 Absolute Monocytes 0.58 Absolute Eosinophils 0.34 Absolute Basophils 0.05 PT 11.0 INR 1.1 APTT 24.6 Sodium 144 Potassium 3.8 Chloride 105 Carbon Dioxide 30.8 Anion Gap 8.2 BUN 22 H Creatinine 1.4 H Est GFR (CKD-EPI 2020) 60.10 Glucose 103 Calcium 9.0 Magnesium Total Bilirubin 0.28 AST 24 ALT 27 Alkaline Phosphatase 49 Troponin I 11 10 Total Protein 6.9 Albumin 3.8 Triglycerides Total Cholesterol LDL Cholesterol, Calc HDL Cholesterol TSH Free T4 Urine Color Urine Clarity Urine pH Ur Specific [place] Urine Protein Urine Ketones Urine Blood Urine Nitrite Urine Bilirubin Urine Urobilinogen Ur Leukocyte Esterase Urine Glucose Ethyl Alcohol 3.3 PFSH All Active Problems TIA (transient ischemic attack) (Acute) Brain TIA (Acute) Disturbance in speech (Acute) Social History Smoking/Tobacco Use Status: Never Smoking risk assessment performed?: Yes Alcohol Intake: current Alcohol Intake frequency: a few times a week Drug use: Never Substance use type: marijuana Housing: house Do you feel safe in your relationship?: Yes Time Spent with Patient Time Spent with Patient: <45 minutes Time was spent: preparing to see the patient(eg.review tests), obtaining and/or reviewing separately otained hiistory, ordering medications,tests, procedures, referring, communicating with other health progressive care unit registered nurse, indepentently interpreting results, counseling the patient and care coordination
--- NOTE | 2024-03-01 15:15 | CMDISCH_ITS ---
Date of service: 03/01/24 Time of Service: 15:16 LACE Index Scoring Tool Questions: Length of Stay (in days): 1 Was the patient admitted via the E.D.?: Yes E.D. Visits: 1 Answers: Total Score: 5 Risk of Readmission: Low Risk Care Management Discharge Plan Reason for Hospitalization: Alejandro was admitted last night due to an acute onset of aphasia. Symptoms resolved spontaneously, but were very scary to the client and his , so they called EMS. CT and MRI of the head were negative, but echocardiogram with bubble study did show a PFO. Alejandro was in the bedside chair when CM first met with him for interview today. He was pleasant, conversed easily, and was hoping to go home. He stated that he would like to go back to school tomorrow. 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 Alejandro was given a return to work letter, can return tomorrow with no restrictions. Alejandro is aware that he has a condition with which he will live the rest of his life. He is eager to complete his outpatient work-up. Alejandro lives in [facility] with his , and is independent at baseline. Discharge Plan: Alejandro is discharged home with new medication orders for aspirin, and 30days of dual antiplatelet medication. He has an appointment scheduled with his PCP for 03/01, and referrals were sent to [facility] [place]ology and to Dr. Camarena - neurology here at [facility]. Alejandro with transport home with his and will follow his prescribed plan of care. Patient/Family Education Needs: Review of discharge instructions and follow up plan. Discuss ask me 3 SDOH Health Related Social Needs: No Data to Display Health related social needs details: denies
== END 2024-03-01 14:08 | disposition home or self-care (01) ==
LOC: ER 03-01 00:29 → MS 03-01 01:23
PROVIDERS: Admitting Provider Family Medicine; Emergency Provider Emergency Medicine; PCP Nurse Practitioner Family; Visit Provider Family Medicine
DX: G45.9 Transient cerebral ischemic attack, unspecified (principal); R47.01 Aphasia; R00.1 Bradycardia, unspecified; F12.90 Cannabis use, unspecified, uncomplicated; Q21.12 Patent foramen ovale; Z79.899 Other long term (current) drug therapy
CPT/HCPCS: 00123; 36415; 36416; 70496; 70498; 80053; 80061; 82962; 85027; 93005; 96372; 99285; 70551; 80320; 81003; 83735; 84439; 84443; 84484; 85025; 85610; 85730; 93010; 93306; 99222; 99239; G0378; J1644; J3490

== ENCOUNTER 2024-03-19 07:51 | Outpatient (CLI) | payer BC, SELFPAY | END 2024-03-19 07:52 | disposition home or self-care (01) | PROVIDERS: PCP Nurse Practitioner Family; Visit Provider Nurse Practitioner Family | DX: G45.9 Transient cerebral ischemic attack, unspecified (principal) | CPT/HCPCS: 93246 ==

== ENCOUNTER 2024-04-06 13:59 | Outpatient (CLI) | payer BC, SELFPAY ==
--- NOTE | 2024-04-06 14:43 | W.CARDEVENT ---
Date of service: 04/06/24 Time of Service: 14:43 Cardiac Event Recorder Referring Provider:: Yazmin Mendez Indications:: Patent foramen ovale Cardiac Event Note: This is a cardiac event monitor. Patient was monitored for 13 days and 13 hours Rhythm throughout was sinus with an average heart rate of 59. Minimum was 33, maximum 150 A total of 10 premature ventricular contractions occurred There were very rare isolated atrial premature beats There was no atrial fibrillation, no high-grade AV block, no pauses greater than 3 seconds Symptoms were reported. The majority of these corresponded to sinus rhythm, rarely to sinus tachycardia, occasionally to sinus bradycardia
== END 2024-04-06 14:00 | disposition home or self-care (01) ==
LOC: CARDOPNVT 13:59
PROVIDERS: PCP Nurse Practitioner Family; Visit Provider Internal Medicine Cardiovascular Disease
DX: Q21.12 Patent foramen ovale (principal)

== ENCOUNTER 2025-04-22 21:08 | Outpatient (REF) | payer BC, SELFPAY ==
[2025-04-22 22:00] LABS: HCT 44.7 % (40.0-50.0); HGB 14.6 g/dL (13.5-17.5); MCH 29.3 pg (27.0-33.0); MCHC 32.7 % (32.0-36.0); MCV 90 fL (80-95); MPV 9.5 fL (8.0-11.0); Platelet Count 274 10^3/uL (130-400); RBC 4.99 10^6/uL (4.36-5.78); RDW 11.7 % (11.8-14.1); RDW-SD 37.8 fL; WBC 5.52 10^3/uL (4.4-10.8)
[2025-04-22 22:25] LABS: Hemoglobin A1C 5.5 % (<5.7)
[2025-04-22 22:26] LABS: ALT 31 U/L (10-49); AST 31 U/L (<34); Albumin 4.6 g/dL (3.2-5.0); Alkaline Phosphatase 49 U/L (46-116); Anion Gap 7.8 mmol/L (3-11); BUN 17 mg/dL (9-23); Bilirubin, Total 0.40 mg/dL (0.2-1.2); CO2 31.2 mmol/L (20.0-31.0); Calcium 9.5 mg/dL (8.3-10.6); Chloride 103 mmol/L (98-107); Cholesterol 153 mg/dL (<200); Glucose 100 mg/dL (74-106); HDL Cholesterol 86 mg/dL (>40); Potassium 4.4 mmol/L (3.5-5.1); Sodium 142 mmol/L (136-145); Total Protein 7.1 g/dL (5.7-8.2)
[2025-04-23 21:46] LABS: PSA, Screening 0.6 ng/mL (<=3.5)
== END 2025-04-22 21:09 | disposition home or self-care (01) ==
LOC: NCHCN 21:08
PROVIDERS: PCP Nurse Practitioner Family; Visit Provider Nurse Practitioner Family
DX: Z00.00 Encounter for general adult medical examination without abnormal findings (principal); Z12.5 Encounter for screening for malignant neoplasm of prostate; R73.03 Prediabetes
CPT/HCPCS: 80053; 80061; 84153; 85027; 83036